=== PATIENT | female | born 1980 | race Caucasian/White ===

== ENCOUNTER → 2018-01-17 13:16 | Outpatient (CLI) | payer BC, SELFPAY ==
[2018-01-17 14:51] LABS: T4 (Thyroxine) 8.1 ug/dl (4.7-13.3); Thyroid Stimulating Hormone 0.04 uIU/ml (0.358-3.740); Triiodothryronine (T3) Uptake 37 % (31-39)
== END ==
PROVIDERS: Visit Provider Internal Medicine Adolescent Medicine
DX: E03.9 Hypothyroidism, unspecified (principal)
CPT/HCPCS: 36415; 84436; 84443; 84479

== ENCOUNTER → 2018-01-29 18:07 | Outpatient (REF) | payer BC, SELFPAY | LOC: LAB 18:07 | PROVIDERS: Visit Provider Nurse Practitioner Obstetrics & Gynecology | DX: R39.9 Unspecified symptoms and signs involving the genitourinary system (principal) | CPT/HCPCS: 87077; 87086 ==

== ENCOUNTER → 2018-04-10 16:03 | Outpatient (CLI) | payer BC, SELFPAY ==
[2018-04-10 18:52] LABS: Free Thyroxine Index 2.6 ug/dL (5.93-13.13); T4 (Thyroxine) 7.9 ug/dl (4.7-13.3); Thyroid Stimulating Hormone 0.26 uIU/ml (0.358-3.740); Triiodothryronine (T3) Uptake 33 % (31-39)
== END ==
PROVIDERS: Visit Provider Internal Medicine Adolescent Medicine
DX: E03.9 Hypothyroidism, unspecified (principal)
CPT/HCPCS: 36415; 84436; 84443; 84479

== ENCOUNTER → 2018-06-28 17:11 | Outpatient (CLI) | payer BC, SELFPAY ==
[2018-06-28 18:24] LABS: Free Thyroxine Index 2.6 ug/dL (5.93-13.13); T4 (Thyroxine) 8.7 ug/dl (4.7-13.3); Thyroid Stimulating Hormone 0.92 uIU/ml (0.358-3.740); Triiodothryronine (T3) Uptake 30 % (31-39)
[2018-06-30 18:41] LABS: EBV Ab VCA, IgM <36.0 U/mL (0.0-35.9)
== END ==
PROVIDERS: Visit Provider Nurse Practitioner Family
DX: J02.9 Acute pharyngitis, unspecified (principal); E03.9 Hypothyroidism, unspecified
CPT/HCPCS: 36415; 84436; 84443; 84479; 86665

== ENCOUNTER → 2018-07-27 07:08 | Outpatient (CLI) | payer BC, SELFPAY ==
[2018-07-27 07:39] LABS: Basophils % 0.8 % (0.1-2.0); Eosinophils # 0.1 K/mm3 (0.0-0.4); Eosinophils % 2.4 % (0.1-12.0); Hemoglobin 12.6 g/dL (12.2-16.2); Lymphocytes # 1.6 K/mm3 (0.7-4.5); Lymphocytes % 26.7 K/mm3 (10-50); Mean Corpuscular HGB Conc 32.4 g/dL (31.8-35.4); Mean Corpuscular Hemoglobin 29.2 pg (27.0-31.2); Monocytes # 0.2 K/mm3 (0.1-1.0); Monocytes % 3.8 % (1.7-9.3); Neutrophils # 3.9 K/mm3 (1.8-7.8); Neutrophils % 66.3 % (37.0-80.0); Platelet Count 225 K/mm3 (142-424); Red Blood Count 4.33 M/mm3 (4.20-5.40); Red Cell Distribution Width 13.2 % (11.5-17.5); White Blood Count 5.8 K/mm3 (4.8-10.8)
[2018-07-27 10:55] LABS: Alanine Aminotransferase 20 U/L (12-78); Albumin/Globulin Ratio 1.1 (1.1-1.8); Alkaline Phosphatase 48 U/L (46-116); Aspartate Amino Transferase 13 U/L (15-37); Bilirubin,Total 0.4 mg/dL (0.2-1.0); Blood Urea Nitrogen 8 mg/dL (7-18); Calcium 8.9 mg/dL (8.5-10.1); Carbon Dioxide 31 mmol/L (21.0-32.0); Chloride 105 mmol/L (98-107); Chol/HDL Ratio 2.4 (1-3.5); Cholesterol 213 mg/dL (140-200); Creatinine,Serum 0.65 mg/dL (0.55-1.02); Estimated Glomerular Filt Rate 103 ml/min (>60); GFR (African American) 124 ML/MIN (>60); Globulin 3.5 gm/dl (1.3-3.2); Glucose 83 mg/dL (74-106); HDL Cholesterol 89 mg/dL (29-89); LDL Cholesterol 116 mg/dL (0-130); Sodium 142 mmol/L (136-145); Thyroid Stimulating Hormone 1.68 uIU/ml (0.358-3.740); Total Protein,Serum 7.5 gm/dL (6.4-8.2); Triglycerides 39 mg/dL (30-200); VLDL Cholesterol 8 mg/dL (0-40)
[2018-07-30 05:17] LABS: Vitamin D 25 Hydroxy 20.4 ng/mL (30.0-100.0)
[2018-07-30 05:25] LABS: Vitamin B12 379 pg/mL (232-1245)
== END ==
PROVIDERS: PCP Internal Medicine Adolescent Medicine; Visit Provider Nurse Practitioner Family
DX: Z00.00 Encounter for general adult medical examination without abnormal findings (principal); R53.83 Other fatigue; E03.9 Hypothyroidism, unspecified
CPT/HCPCS: 36415; 80053; 80061; 82607; 82652; 84443; 85025

== ENCOUNTER → 2018-11-08 14:25 | Outpatient (CLI) | payer BC, SELFPAY ==
[2018-11-08 15:50] LABS: Basophils # 0.1 K/mm3 (0-0.2); Eosinophils # 0.1 K/mm3 (0.0-0.4); Eosinophils % 2.2 % (0.1-12.0); Hematocrit 37.4 % (37.0-47.0); Hemoglobin 12.1 g/dL (12.2-16.2); Lymphocytes # 1.5 K/mm3 (0.7-4.5); Lymphocytes % 23.1 % (10-50); Mean Corpuscular HGB Conc 32.3 g/dL (31.8-35.4); Mean Corpuscular Hemoglobin 29.3 pg (27.0-31.2); Mean Corpuscular Volume 90.8 fl (81-99); Mean Platelet Volume 7.3 fl (7.4-10.4); Monocytes # 0.2 K/mm3 (0.1-1.0); Monocytes % 3.7 % (1.7-9.3); Neutrophils # 4.4 K/mm3 (1.8-7.8); Neutrophils % 70.1 % (37.0-80.0); Platelet Count 236 K/mm3 (142-424); Red Blood Count 4.12 M/mm3 (4.20-5.40); Red Cell Distribution Width 13.1 % (11.5-17.5); White Blood Count 6.3 K/mm3 (4.8-10.8)
[2018-11-08 16:00] LABS: Alanine Aminotransferase 20 U/L (12-78); Albumin Level 3.7 gm/dL (3.4-5.0); Albumin/Globulin Ratio 1.1 (1.1-1.8); Alkaline Phosphatase 49 U/L (46-116); Anion Gap 12.8 mEq/L (5-15); Aspartate Amino Transferase 17 U/L (15-37); Bilirubin,Total 0.2 mg/dL (0.2-1.0); Blood Urea Nitrogen 12 mg/dL (7-18); Calcium 8.3 mg/dL (8.5-10.1); Carbon Dioxide 28 mmol/L (21.0-32.0); Chloride 105 mmol/L (98-107); Creatinine,Serum 0.85 mg/dL (0.55-1.02); Estimated Glomerular Filt Rate 75 ml/min (>60); GFR (African American) 91 ML/MIN (>60); Globulin 3.3 gm/dl (1.3-3.2); Glucose 82 mg/dL (74-106); Potassium 3.8 mmoL/L (3.5-5.1); Sodium 142 mmol/L (136-145); Thyroid Stimulating Hormone 0.35 uIU/ml (0.358-3.740)
[2018-11-10 10:57] LABS: Vitamin B12 1264 pg/mL (232-1245); Vitamin D 25 Hydroxy 64.8 ng/mL (30.0-100.0)
== END ==
PROVIDERS: Visit Provider Nurse Practitioner Family
DX: Z00.00 Encounter for general adult medical examination without abnormal findings (principal); E03.9 Hypothyroidism, unspecified; E53.8 Deficiency of other specified B group vitamins; E55.9 Vitamin D deficiency, unspecified
CPT/HCPCS: 36415; 80053; 82607; 82652; 84443; 85025

== ENCOUNTER → 2019-01-28 16:07 | Outpatient (CLI) | payer BC, SELFPAY ==
[2019-01-28 17:19] LABS: Alanine Aminotransferase 20 U/L (12-78); Albumin Level 3.8 gm/dL (3.4-5.0); Albumin/Globulin Ratio 1.1 (1.1-1.8); Alkaline Phosphatase 46 U/L (46-116); Anion Gap 12.9 mEq/L (5-15); Aspartate Amino Transferase 18 U/L (15-37); Bilirubin,Total 0.3 mg/dL (0.2-1.0); Blood Urea Nitrogen 14 mg/dL (7-18); Calcium 8.5 mg/dL (8.5-10.1); Carbon Dioxide 28 mmol/L (21.0-32.0); Chloride 102 mmol/L (98-107); Chol/HDL Ratio 2.8 (1-3.5); Cholesterol 197 mg/dL (140-200); Creatinine,Serum 0.67 mg/dL (0.55-1.02); Estimated Glomerular Filt Rate 99 ml/min (>60); GFR (African American) 120 ML/MIN (>60); Globulin 3.5 gm/dl (1.3-3.2); Glucose 85 mg/dL (74-106); HDL Cholesterol 71 mg/dL (29-89); LDL Cholesterol 105 mg/dL (0-130); Potassium 3.9 mmoL/L (3.5-5.1); Sodium 139 mmol/L (136-145); Thyroid Stimulating Hormone 1.99 uIU/ml (0.358-3.740); Total Protein,Serum 7.3 gm/dL (6.4-8.2); Triglycerides 104 mg/dL (30-200); VLDL Cholesterol 21 mg/dL (0-40)
== END ==
PROVIDERS: Visit Provider Internal Medicine Adolescent Medicine
DX: E78.5 Hyperlipidemia, unspecified (principal); E03.9 Hypothyroidism, unspecified
CPT/HCPCS: 36415; 80053; 80061; 84443

== ENCOUNTER → 2019-05-23 09:13 | Outpatient (CLI) | payer BC, SELFPAY ==
[2019-05-23 13:03] LABS: Alanine Aminotransferase 20 U/L (12-78); Albumin Level 3.9 gm/dL (3.4-5.0); Albumin/Globulin Ratio 1.1 (1.1-1.8); Alkaline Phosphatase 52 U/L (46-116); Anion Gap 14.2 mEq/L (5-15); Aspartate Amino Transferase 16 U/L (15-37); Bilirubin,Total 0.5 mg/dL (0.2-1.0); Blood Urea Nitrogen 12 mg/dL (7-18); Carbon Dioxide 27 mmol/L (21.0-32.0); Chloride 103 mmol/L (98-107); Cholesterol 211 mg/dL (140-200); Creatinine,Serum 0.68 mg/dL (0.55-1.02); Estimated Glomerular Filt Rate 97 ml/min (>60); GFR (African American) 118 ML/MIN (>60); Globulin 3.4 gm/dl (1.3-3.2); Glucose 80 mg/dL (74-106); HDL Cholesterol 71 mg/dL (29-89); LDL Cholesterol 130 mg/dL (0-130); Potassium 4.2 mmoL/L (3.5-5.1); Sodium 140 mmol/L (136-145); Thyroid Stimulating Hormone 2.71 uIU/ml (0.358-3.740); Total Protein,Serum 7.3 gm/dL (6.4-8.2); Triglycerides 48 mg/dL (30-200); VLDL Cholesterol 10 mg/dL (0-40)
== END ==
PROVIDERS: Visit Provider Nurse Practitioner Family
DX: Z00.00 Encounter for general adult medical examination without abnormal findings (principal); E78.5 Hyperlipidemia, unspecified; E03.9 Hypothyroidism, unspecified
CPT/HCPCS: 36415; 80053; 80061; 84443

== ENCOUNTER → 2019-10-21 17:58 | Outpatient (CLI) | payer BC, SELFPAY ==
[2019-10-21 21:00] LABS: Free Thyroxine Index 2.7 ug/dL (5.93-13.13); Thyroid Stimulating Hormone 6.54 uIU/ml (0.358-3.740); Triiodothryronine (T3) Uptake 34 % (31-39)
== END ==
PROVIDERS: Visit Provider Internal Medicine Adolescent Medicine
DX: E03.9 Hypothyroidism, unspecified (principal)
CPT/HCPCS: 36415; 84436; 84443; 84479

== ENCOUNTER → 2020-01-15 07:03 | Outpatient (CLI) | payer BC, SELFPAY ==
[2020-01-15 08:41] LABS: Chloride 102 mmol/L (98-107); Potassium 4.1 mmoL/L (3.5-5.1); Sodium 139 mmol/L (136-145)
[2020-01-15 08:43] LABS: Alanine Aminotransferase 12 U/L (12-78); Aspartate Amino Transferase 23 U/L (14-36); Blood Urea Nitrogen 10 mg/dl (7-17); Estimated Glomerular Filt Rate 112 ml/min (>60); GFR (African American) 135 ML/MIN (>60)
[2020-01-15 08:44] LABS: Albumin Level 4.5 g/dl (3.5-5.0); Albumin/Globulin Ratio 1.6 (1.1-1.8); Alkaline Phosphatase 36 U/L (38-126); Anion Gap 11.1 mEq/L (5-15); Bilirubin,Total 0.4 mg/dl (0.2-1.3); Calcium 9.6 mg/dl (8.4-10.2); Carbon Dioxide 30 mmol/L (22.0-30.0); Chol/HDL Ratio 3.1 (1-3.5); Cholesterol 206 mg/dl (140-200); Globulin 2.9 g/dL (1.3-3.2); Glucose 87 mg/dl (74-100); HDL Cholesterol 66 mg/dl (40-60); Total Protein,Serum 7.4 g/dl (6.3-8.2); Triglycerides 66 mg/dl (30-150); VLDL Cholesterol 13 mg/dL (0-40)
[2020-01-15 08:56] LABS: Direct LDL Cholesterol 105.62 mg/dL (100-129)
[2020-01-15 09:01] LABS: Triiodothryronine (T3) Uptake 33 % (23.5-40.5)
[2020-01-15 09:02] LABS: Free Thyroxine Index 2.6 ug/dL (5.93-13.13); T4 (Thyroxine) 7.9 ug/dl (5.53-11.0)
== END ==
PROVIDERS: Visit Provider Nurse Practitioner Family
DX: E78.5 Hyperlipidemia, unspecified (principal); E03.9 Hypothyroidism, unspecified; R53.83 Other fatigue
CPT/HCPCS: 36415; 80053; 80061; 84436; 84443; 84479

== ENCOUNTER → 2020-05-19 12:48 | Outpatient (CLI) | payer BC, SELFPAY ==
[2020-05-19 13:59] LABS: 25-OH Vitamin D, Total 54.2 ng/mL (30-100); Free Thyroxine Index 2.4 ug/dL (5.93-13.13); T4 (Thyroxine) 7.7 ug/dl (5.53-11.0); Triiodothryronine (T3) Uptake 31 % (23.5-40.5)
[2020-05-19 14:12] LABS: Thyroid Stimulating Hormone 3.63 uIU/mL (0.465-4.68)
[2020-05-20 11:58] LABS: Vitamin B12 948 pg/mL (232-1245)
== END ==
PROVIDERS: Visit Provider Nurse Practitioner Family
DX: E03.9 Hypothyroidism, unspecified (principal); E53.8 Deficiency of other specified B group vitamins; E55.9 Vitamin D deficiency, unspecified
CPT/HCPCS: 36415; 82306; 82607; 84436; 84443; 84479

== ENCOUNTER → 2020-10-06 08:50 | Outpatient (CLI) | payer BC, SELFPAY ==
[2020-10-06 11:48] LABS: Alanine Aminotransferase 12 U/L (12-78); Albumin Level 4.5 g/dl (3.5-5.0); Albumin/Globulin Ratio 1.4 (1.1-1.8); Alkaline Phosphatase 49 U/L (38-126); Anion Gap 11.3 mEq/L (5-15); Aspartate Amino Transferase 26 U/L (14-36); Bilirubin,Total 0.6 mg/dl (0.2-1.3); Blood Urea Nitrogen 10 mg/dl (7-17); Calcium 9.3 mg/dl (8.4-10.2); Carbon Dioxide 29 mmol/L (22.0-30.0); Chloride 103 mmol/L (98-107); Estimated Glomerular Filt Rate 93 ml/min (>60); GFR (African American) 113 ML/MIN (>60); Globulin 3.2 g/dL (1.3-3.2); Glucose 86 mg/dl (74-100); Potassium 4.3 mmoL/L (3.5-5.1); Sodium 139 mmol/L (136-145); Total Protein,Serum 7.7 g/dl (6.3-8.2)
[2020-10-06 12:20] LABS: Thyroid Stimulating Hormone 3.99 uIU/mL (0.465-4.68)
[2020-10-06 12:39] LABS: Vitamin B12 738 pg/mL (239-931)
== END ==
PROVIDERS: Visit Provider Nurse Practitioner Family
DX: E03.9 Hypothyroidism, unspecified (principal); E53.8 Deficiency of other specified B group vitamins; E55.9 Vitamin D deficiency, unspecified
CPT/HCPCS: 36415; 80053; 82306; 82607; 84443

== ENCOUNTER 2020-11-22 13:40 | Emergency (ER) | payer BC, SELFPAY ==
[2020-11-22 15:10] VITALS: PULSE 76; RESP 18; TEMP 36.3; O2SAT 99; BMI 23.6
--- NOTE | 2020-11-22 15:42 | HMH.EDUTC ---
[facility] [place] Clinical Impression: Close exposure to COVID-19 virus Disposition: Home, Self-Care Condition on Discharge: Good Instructions: DI for COVID-19 (Suspected or Confirmed ), Coronavirus Disease 2019, Preventing the Spread of Coronavirus Discharge Instructions Additional Instructions: *Monitor Temp, Over the counter Motrin or Tylenol as directed/as needed Tylenol every 4 hours and Motrin every 6 hours (as long as your family doctor has told you that you can take it) for fever or pain. and straight to ER if unable to lower temp less than 101.0 after medication given Follow up IMMEDIATELY for new or worsening symptoms or no Noticeable improvement over the next 48-72 hours. 911 for difficulty breathing or swallowing You were tested for today for COVID19 your test result should be back in the next 24-48 hours, you may call to the [facility] to see if your test results are back in the next 48 hours [phone] [facility] hours are 9am-9pm You was given a handout with instructions for Self Quarantine and Self isolation for while you wait on test results and what to do if they are positive If you are positive the Health Dept will be contacting you also Referrals: Lamont Morris MD [Primary Care Provider] - As needed Forms: Work/School Release Time of Disposition: 15:43 Medical Decision Making - Maximo Inquiry Pt receiving controlled substance: No Maximo was queried for this patient: No Vital Signs: 11/22/20 15:10 Temperature 97.4 F L Temperature Source Oral Pulse Rate [Right Brachial] 76 Respiratory Rate 18 02 Sat by Pulse Oximetry 99 Oxygen Delivery Method Room Air Orders (Tests/Meds): ORDERS Category Date Time Status Covid-19 Nasal PCR ([facility]) Routine Lab 11/22/20 15:12 Received [facility] [place] HPI - General Stated complaint: covid test Time Seen by Provider: 11/22/20 15:42 Mode of Arrival: Ambulatory Source of Information: Patient Limitations: No Limitations Description of Symptoms (Recalled from Triage Doc. by RN): COVID TEST D/T EXPOSURE. C/O FATIGUE HEENT Symptoms (Recalled from RN notes): No Resp Symptoms (Recalled from RN notes): No Skin Symptoms (Recalled from RN notes): No MS Symptoms (Recalled from RN notes): No Functional Status (Recalled from RN notes): WNL - History of Present Illness Provider Complaint: Patient states that her recently tested positive for COVID States that she has been feeling achy and fatigue for the last few days but no other symptom so she wanted to get tested - Related Data Home Medications Medication Instructions Recorded Confirmed cetirizine 10 mg capsule 10 mg PO ONCE 01/26/18 11/19/20 buspirone 5 mg tablet 5 mg PO BID 05/22/19 11/19/20 flu vacc [id number] 6mos up(PF) ml IM 09/15/20 11/19/20 levothyroxine 100 mcg tablet 100 mcg PO tab 09/15/20 11/19/20 clonazepam 0.5 mg tablet 0.5 mg PO tab 11/19/20 11/19/20 escitalopram oxalate 20 mg tablet 20 mg PO tab 11/19/20 11/19/20 Allergies Allergy/AdvReac Type Severity Reaction Status Date / Time bupropion [From WELLBUTRIN] Allergy Mild SEVERE Verified 11/19/20 09:34 ANXIETY, NAUSEA AND PAIN Penicillins [PENICILLINS] Allergy Mild I-RASH Verified 11/19/20 09:34 - Worker's Comp Is this a Worker's Comp case?: No [facility] History - Hepatitis A Screen Drug use history?: No High risk sexual behaviors?: No History of sexually transmitted infection?: No Currently employed?: No Childcare worker?: No Do you have indoor plumbing?: Yes Do you have electricity?: Yes Attestation statement:: This patient has been screened for Hepatitis A risk factors. I have reviewed the patient's past medical history: Yes Medical History: Reports:: Anxiety, Depression Other Medical History: Reports: Hypothyroidism Other Surgeries: Yes: No Previous Surgery Amputation: No Fractures: No Comment: CYSTOSCOPY WITH URETHRAL DILATION - Social History Smoking Status: Never smoker Alcohol Intake: never Alcohol I
[2020-11-22 15:46] VITALS: BP 00/00; PULSE 76; RESP 18; TEMP 36.3; O2SAT 99
== END 2020-11-22 15:57 | disposition home or self-care (01) ==
PROVIDERS: Emergency Provider Nurse Practitioner; PCP Internal Medicine Adolescent Medicine
DX: Z20.822 Contact with and (suspected) exposure to COVID-19 (principal); F41.8 Other specified anxiety disorders; Z79.899 Other long term (current) drug therapy
CPT/HCPCS: 99202; G0463; U0003

== ENCOUNTER → 2021-01-27 07:11 | Outpatient (CLI) | payer BC, SELFPAY ==
[2021-01-27 08:21] LABS: Chloride 105 mmol/L (98-107); Potassium 4.5 mmoL/L (3.5-5.1); Sodium 139 mmol/L (136-145)
[2021-01-27 08:24] LABS: Alanine Aminotransferase 19 U/L (12-78); Albumin Level 4.7 g/dl (3.5-5.0); Albumin/Globulin Ratio 1.3 (1.1-1.8); Alkaline Phosphatase 41 U/L (38-126); Anion Gap 11.5 mEq/L (5-15); Aspartate Amino Transferase 31 U/L (14-36); Bilirubin,Total 0.4 mg/dl (0.2-1.3); Blood Urea Nitrogen 13 mg/dl (7-17); Calcium 9.5 mg/dl (8.4-10.2); Carbon Dioxide 27 mmol/L (22.0-30.0); Chol/HDL Ratio 3.4 (1-3.5); Cholesterol 226 mg/dl (140-200); Estimated Glomerular Filt Rate 93 ml/min (>60); GFR (African American) 113 ML/MIN (>60); Globulin 3.6 g/dL (1.3-3.2); Glucose 86 mg/dl (74-100); HDL Cholesterol 66 mg/dl (40-60); Total Protein,Serum 8.3 g/dl (6.3-8.2); Triglycerides 102 mg/dl (30-150); VLDL Cholesterol 20 mg/dL (0-40)
[2021-01-27 08:36] LABS: Direct LDL Cholesterol 131.15 mg/dL (100-129)
[2021-01-27 08:42] LABS: 25-OH Vitamin D, Total 51.7 ng/mL (30-100)
[2021-01-27 08:55] LABS: Thyroid Stimulating Hormone 8.83 uIU/mL (0.465-4.68)
== END ==
PROVIDERS: Visit Provider Nurse Practitioner Family
DX: E03.9 Hypothyroidism, unspecified (principal); E78.5 Hyperlipidemia, unspecified; E55.9 Vitamin D deficiency, unspecified
CPT/HCPCS: 36415; 80053; 80061; 82306; 84443

== ENCOUNTER → 2021-04-22 17:01 | Outpatient (CLI) | payer BC, SELFPAY ==
[2021-04-22 17:13] LABS: Basophils # 0.1 K/mm3 (0-0.2); Basophils % 1.2 % (0.1-2.0); Eosinophils # 0.1 K/mm3 (0.0-0.4); Eosinophils % 1.8 % (0.1-12.0); Hematocrit 38.3 % (37.0-47.0); Hemoglobin 12.5 g/dL (12.2-16.2); Lymphocytes # 1.9 K/mm3 (0.7-4.5); Lymphocytes % 28.6 % (10-50); Mean Corpuscular HGB Conc 32.6 g/dL (31.8-35.4); Mean Corpuscular Hemoglobin 28.8 pg (27.0-31.2); Mean Corpuscular Volume 88.6 fl (81-99); Mean Platelet Volume 7.4 fl (7.4-10.4); Monocytes # 0.3 K/mm3 (0.1-1.0); Monocytes % 3.8 % (1.7-9.3); Neutrophils # 4.2 K/mm3 (1.8-7.8); Neutrophils % 64.7 % (37.0-80.0); Platelet Count 259 K/mm3 (142-424); Red Blood Count 4.32 M/mm3 (4.20-5.40); Red Cell Distribution Width 12.9 % (11.5-17.5); White Blood Count 6.5 K/mm3 (4.8-10.8)
[2021-04-22 17:28] LABS: Chloride 102 mmol/L (98-107); Sodium 138 mmol/L (136-145)
[2021-04-22 17:30] LABS: Blood Urea Nitrogen 10 mg/dl (7-17); Estimated Glomerular Filt Rate 93 ml/min (>60); GFR (African American) 113 ML/MIN (>60)
[2021-04-22 17:31] LABS: Alanine Aminotransferase 13 U/L (12-78); Albumin Level 4.6 g/dl (3.5-5.0); Albumin/Globulin Ratio 1.4 (1.1-1.8); Alkaline Phosphatase 44 U/L (38-126); Aspartate Amino Transferase 24 U/L (14-36); Bilirubin,Total 0.2 mg/dl (0.2-1.3); Calcium 9.2 mg/dl (8.4-10.2); Carbon Dioxide 27 mmol/L (22.0-30.0); Globulin 3.2 g/dL (1.3-3.2); Glucose 109 mg/dl (74-100); Total Protein,Serum 7.8 g/dl (6.3-8.2)
[2021-04-22 18:08] LABS: Thyroid Stimulating Hormone 2.58 uIU/mL (0.465-4.68)
[2021-04-22 20:26] LABS: Vitamin B12 745 pg/mL (239-931)
[2021-04-23 16:07] LABS: Hemoglobin A1C 5.1 % (4.0-6.0)
== END ==
PROVIDERS: Visit Provider Nurse Practitioner Family
DX: Z00.00 Encounter for general adult medical examination without abnormal findings (principal); E78.5 Hyperlipidemia, unspecified; E03.9 Hypothyroidism, unspecified; E53.8 Deficiency of other specified B group vitamins; E55.9 Vitamin D deficiency, unspecified; R73.9 Hyperglycemia, unspecified
CPT/HCPCS: 36415; 80053; 82306; 82607; 83036; 84443; 85025

== ENCOUNTER → 2021-07-29 16:12 | Outpatient (CLI) | payer BC, SELFPAY ==
--- NOTE | 2021-07-29 16:13 | MM_ITS ---
PROCEDURE: MM DIG SCREENING MAMM BI W/CAD Digital Breast Tomosynthesis Included CLINICAL INDICATION: SCREENING COMPARISON: No exams were available for comparison TECHNIQUE: Standard CC and MLO images and 3D Tomosynthesis was obtained. R2 CAD reviewed. FINDINGS: There are scattered areas of fibroglandular density. No suspicious appearing mass, malignant-appearing microcalcification, architectural distortion, or skin thickening. IMPRESSION: Negative BI-RAD Category: 1 Negative FOLLOW-UP: 1 YR 1 Year Follow-up (A letter has been sent to the patient regarding results of the study.) Dictated by: Sebastian Connors MD 08/16/2021 11:20 Sebastian Connors MD in [place] 08/16/2021 11:20
== END ==
PROVIDERS: PCP Internal Medicine Adolescent Medicine; Visit Provider Nurse Practitioner Family
DX: Z12.31 Encounter for screening mammogram for malignant neoplasm of breast (principal)
CPT/HCPCS: 77063; 77067

== ENCOUNTER → 2021-10-14 11:37 | Outpatient (CLI) | payer BC, SELFPAY ==
[2021-10-14 12:13] LABS: Basophils # 0.1 K/mm3 (0-0.2); Basophils % 2.3 % (0.1-2.0); Eosinophils # 0.1 K/mm3 (0.0-0.4); Eosinophils % 2.2 % (0.1-12.0); Hematocrit 38.4 % (37.0-47.0); Hemoglobin 12.8 g/dL (12.2-16.2); Lymphocytes # 1.6 K/mm3 (0.7-4.5); Lymphocytes % 27.2 % (10-50); Mean Corpuscular HGB Conc 33.4 g/dL (31.8-35.4); Mean Corpuscular Hemoglobin 29.2 pg (27.0-31.2); Mean Corpuscular Volume 87.4 fl (81-99); Mean Platelet Volume 7.6 fl (7.4-10.4); Monocytes # 0.2 K/mm3 (0.1-1.0); Neutrophils # 3.9 K/mm3 (1.8-7.8); Neutrophils % 64.3 % (37.0-80.0); Platelet Count 287 K/mm3 (142-424); Red Blood Count 4.39 M/mm3 (4.20-5.40); Red Cell Distribution Width 13.4 % (11.5-17.5)
[2021-10-14 13:35] LABS: Alanine Aminotransferase 6 U/L (12-78); Albumin Level 4.4 g/dl (3.5-5.0); Albumin/Globulin Ratio 1.5 (1.1-1.8); Alkaline Phosphatase 38 U/L (38-126); Anion Gap 9.2 mEq/L (5-15); Aspartate Amino Transferase 26 U/L (14-36); Bilirubin,Total 0.2 mg/dl (0.2-1.3); Blood Urea Nitrogen 8 mg/dl (7-17); Calcium 9.4 mg/dl (8.4-10.2); Carbon Dioxide 29 mmol/L (22.0-30.0); Chloride 104 mmol/L (98-107); Estimated Glomerular Filt Rate 111 ml/min (>60); GFR (African American) 134 ML/MIN (>60); Glucose 81 mg/dl (74-100); Potassium 4.2 mmoL/L (3.5-5.1); Sodium 138 mmol/L (136-145); Total Protein,Serum 7.4 g/dl (6.3-8.2)
[2021-10-14 13:52] LABS: Free T4 (Free Thyroxine) 1.21 ng/dl (0.78-2.19)
[2021-10-14 14:04] LABS: Thyroid Stimulating Hormone 0.09 uIU/mL (0.465-4.68)
== END ==
PROVIDERS: Visit Provider Nurse Practitioner Family
DX: E03.9 Hypothyroidism, unspecified (principal); R19.5 Other fecal abnormalities
CPT/HCPCS: 36415; 80053; 84439; 84443; 85025

== ENCOUNTER → 2021-10-16 09:40 | Outpatient (CLI) | payer BC, SELFPAY ==
[2021-10-16 09:43] LABS: Adenovirus F 40/41, stool Not Detected (NotDetected); Astrovirus Not Detected (NotDetected); Campylobacter Not Detected (NotDetected); Clostridium Difficile A/B, PCR Not Detected (NotDetected); Cryptosporidium Not Detected (NotDetected); Cyclospora Cayetanesis Not Detected (NotDetected); Entamoeba histolytica Not Detected (NotDetected); Enteroaggregative E coli Not Detected (NotDetected); Enteropathogenic E coli Not Detected (NotDetected); Enterotoxigenic E coli Not Detected (NotDetected); Giardia lamblia Not Detected (NotDetected); Norovirus Not Detected (NotDetected); Plesimonas Shigalloides, PCR Not Detected (NotDetected); Rotavirus A Not Detected (NotDetected); Salmonella, PCR Not Detected (NotDetected); Sapovirus Not Detected (NotDetected); Shiga-like toxin E coli Not Detected (NotDetected); Shigella Enterovasive E coli Not Detected (NotDetected); Vibrio Cholerae Not Detected (NotDetected); Vibrio, PCR Not Detected (NotDetected); Yersinia Entercolitica, PCR Not Detected (NotDetected)
== END ==
PROVIDERS: Visit Provider Nurse Practitioner Family
DX: R19.5 Other fecal abnormalities (principal); K62.89 Other specified diseases of anus and rectum
CPT/HCPCS: 87506

== ENCOUNTER → 2022-09-23 07:46 | Outpatient (CLI) | payer BC, SELFPAY ==
--- NOTE | 2022-09-23 07:52 | MM_ITS ---
PROCEDURE INFORMATION: Exam: MG Bilateral Screening 3D Mammography Exam date and time: 09/23/2022 7:54 AM Age: 42 years old Clinical indication: Screening examination. For paternal great breast cancer. History of left benign excisional biopsy. TECHNIQUE: Imaging protocol: Bilateral Screening tomosynthesis and 2D mammography including computer-aided detection (CAD) when performed. COMPARISON: MG MM DIG SCREENING MAMM BI W/CAD 07/29/2021 4:11 PM FINDINGS: MAMMOGRAPHY: Breast composition: There are scattered areas of fibroglandular density. Mass: None. Architectural distortion: None. Calcifications: No suspicious calcifications. Asymmetric density: None. Skin thickening: None. Axillary adenopathy: None. IMPRESSION: No mammographic evidence of malignancy. Annual screening is recommended unless otherwise clinically indicated. ASSESSMENT: BI-RADS Category 1: Negative
== END ==
PROVIDERS: PCP Internal Medicine Adolescent Medicine; Visit Provider Nurse Practitioner Family
DX: Z12.31 Encounter for screening mammogram for malignant neoplasm of breast (principal)
CPT/HCPCS: 77063; 77067

== ENCOUNTER → 2023-05-10 12:09 | Outpatient (CLI) | payer BC, SELFPAY ==
--- NOTE | 2023-05-10 12:17 | XR_ITS ---
FINAL REPORT CLINICAL HISTORY: INJURY, pain in middle of foot on top, swelling FINDINGS: RIGHT FOOT: Three views of the right foot were obtained. There is no acute fracture or dislocation. A mild hallux valgus deformity is present. There is mild 1st metatarsophalangeal joint degenerative change. There is no soft tissue abnormality. IMPRESSION: Mild hallux valgus deformity with mild 1st MTP degenerative change. Reviewed, Interpreted and Dictated by Víctor Webb III, MD Transcribed by Margaux Car Authenticated and [facility]
== END ==
PROVIDERS: PCP Internal Medicine Adolescent Medicine; Visit Provider Nurse Practitioner Family
DX: M79.671 Pain in right foot (principal); G89.11 Acute pain due to trauma
CPT/HCPCS: 73630

== ENCOUNTER 2023-07-07 15:07 | Emergency (ER) | payer BC, SELFPAY ==
[2023-07-07 15:08] VITALS: BP 130/86; PULSE 105; RESP 18; TEMP 36.8; O2SAT 99; BMI 26.1
[2023-07-07 15:30] VITALS: BP 129/89; PULSE 108; RESP 20; O2SAT 98
[2023-07-07 15:30] LABS: Microscopic, Urine URINE MICROSCOPIC (MICROSCOPIC)
--- NOTE | 2023-07-07 15:31 | US_ITS ---
FINAL REPORT CLINICAL HISTORY: RUQ pain, postprandial FINDINGS: RIGHT UPPER QUADRANT ULTRASOUND Sonographic images of the right upper quadrant were obtained. The pancreas is partially obscured. There is fatty infiltration of the liver. The gallbladder is contracted with a small amount of sludge. The common duct is normal. Limited images of the right kidney are normal. IMPRESSION: Fatty liver. Gallbladder sludge. Reviewed, Interpreted and Dictated by Juan J Flynn MD Transcribed by Pauly Nick Authenticated and [facility]
[2023-07-07 15:38] LABS: Basophils % 0.4 % (0.1-2.0); Eosinophils # 0.2 K/mm3 (0.0-0.4); Hematocrit 38.3 % (37.0-47.0); Hemoglobin 12.5 g/dL (12.2-16.2); Lymphocytes # 2.5 K/mm3 (0.7-4.5); Lymphocytes % 30.2 % (10-50); Mean Corpuscular HGB Conc 32.7 g/dL (31.8-35.4); Mean Corpuscular Hemoglobin 28.3 pg (27.0-31.2); Mean Corpuscular Volume 86.5 fl (81-99); Mean Platelet Volume 7.6 fl (7.4-10.4); Monocytes # 0.4 K/mm3 (0.1-1.0); Monocytes % 4.5 % (1.7-9.3); Neutrophils # 5.3 K/mm3 (1.8-7.8); Neutrophils % 62.8 % (37.0-80.0); Platelet Count 280 K/mm3 (142-424); Red Blood Count 4.43 M/mm3 (4.20-5.40); Red Cell Distribution Width 14.2 % (11.5-17.5); White Blood Count 8.4 K/mm3 (4.8-10.8)
[2023-07-07 15:43] LABS: Appearance,Urine CLEAR (Clear); Bilirubin,Urine Negative (Negative); Blood, Urine TRACE-I (Negative); Color,Urine YELLOW (Yellow); Glucose,Urine (UA) Negative (Negative); Ketones,Urine Negative (Negative); Leukocyte Esterase,Urine Negative (Negative); Nitrate,Urine Negative (Negative); Protein,Urine Negative (Negative); Specific Gravity, Urine <= 1.005 (1.005-1.030); Urobilinogen,Urine 0.2 EU/dl (0.2)
--- NOTE | 2023-07-07 15:44 | PC.NURSE ---
rad notified of u/s order
--- NOTE | 2023-07-07 15:48 | PC.NURSE ---
PT TO US
[2023-07-07 15:54] LABS: Alanine Aminotransferase 25 U/L (12-78); Albumin Level 4.8 g/dl (3.5-5.0); Albumin/Globulin Ratio 1.3 (1.1-1.8); Alkaline Phosphatase 59 U/L (38-126); Anion Gap 15.6 mEq/L (5-15); Aspartate Amino Transferase 31 U/L (14-36); Blood Urea Nitrogen 10 mg/dl (7-17); Calcium 9.2 mg/dl (8.4-10.2); Carbon Dioxide 27 mmol/L (22.0-30.0); Chloride 105 mmol/L (98-107); Creatinine Clearance Estimated 113 mL/min (50-200); Estimated Glomerular Filt Rate 79 ml/min (>60); GFR (African American) 95 ML/MIN (>60); Globulin 3.7 g/dL (1.3-3.2); Glucose 97 mg/dl (74-100); Lipase 74 U/L (23-300); Potassium 3.6 mmoL/L (3.5-5.1); RBC,Urine Occasional #/hpf (0-3); Sodium 144 mmol/L (136-145); Squamous Epithelial Cell,Urine Occasional #/hpf (0-5); Total Protein,Serum 8.5 g/dl (6.3-8.2)
[2023-07-07 15:55] LABS: Bilirubin,Total < 0.1 mg/dl (0.2-1.3)
--- NOTE | 2023-07-07 16:30 | HMH.EDGENADL ---
Discharge Plan Disposition Patient Disposition: Home, Self-Care Condition: Good Prescriptions Prescriptions: New ondansetron 4 mg tablet,disintegrating 4 mg PO Q8H PRN (Reason: nausea and vomiting) 4 Days Qty: 12 0RF naproxen 500 mg tablet 500 mg PO BID PRN (Reason: pain) Qty: 20 0RF polyethylene glycol 3350 [Miralax] 17 gram/dose powder 8.5 g PO DAILY PRN (Reason: constipation) 14 Days Qty: 119 0RF No Action clonazepam 0.5 mg tablet 0.5 mg PO Patient Comments: TAKE 1 TABLET BY DAILY NEEDED FOR PANIC FOR 30 DAYS escitalopram oxalate 20 mg tablet 10 mg PO DAILY buspirone 5 mg tablet 5 mg PO BID PRN levothyroxine 112 mcg capsule 112 mcg PO DAILY levocetirizine [Xyzal] 5 mg tablet 5 mg PO DAILY atorvastatin 20 mg tablet 20 mg PO DAILY Referrals Follow up/Referrals: Lamont Morris MD [Primary Care Provider] - See instructions Pravin Arce MD [Staff Physician] - See instructions Activity Restrictions/Add. Instructions Additional Instructions/Restrictions: You were evaluated in the emergency department today. At this time, your ultrasound of your gallbladder shows sludge, which I feel is likely causing your symptoms. Please pickling solution maker your prescriptions at home and take them as needed for symptoms. You may also take Tylenol in addition to these medications. I am prescribing MiraLAX to you, as constipation and gas buildup may also be contributing to your symptoms. Please call Dr. Arce's office to arrange follow-up with him early next week. He is a general surgeon who can discuss your gallbladder with you. I also recommend following up with your primary care provider. I recommend eating a bland diet, such as the BRAT diet (bananas, rice, applesauce, toast), and avoiding fatty/greasy foods. Eat small amounts at a time. Make sure that you are staying hydrated. Return to the emergency department for new or worsening symptoms, such as increasing pain, intractable vomiting, or fever. Clinical Impressions Clinical Impression: Abdominal pain, acute, right upper quadrant, Biliary sludge determined by ultrasound Instructions Patient Instructions: DI for Acute Abdominal Pain, DI for Biliary Colic Discharge ED Provider: Ankita Vergara General Adult HPI General Chief complaint: Abdominal Pain Stated complaint: right side abd pain Time Seen by Provider: 07/07/23 15:24 Mode of Arrival: Ambulatory Source of Information: Patient Limitations: No Limitations Description of Symptoms (Recalled from ER Triage Doc. by RN): PT C/O 2-3 WEEKS OF ONGOING RIGHT SIDED PAIN, WORSE ABOUT 1 HOUR AFTER EATING. History of Present Illness HPI narrative: This patient is a 43-year-old female with a history of hypothyroidism presenting to the emergency department for evaluation with concern for right upper quadrant abdominal pain. She states that it radiates up to her right shoulder. It gets worse in the evenings and worse with eating. It has been off and on for about 2 to 3 weeks now. She states that she was seen by her OB, who was concerned that it could be her gallbladder. She denies any fevers, chills, vomiting, change in bowel movements, or other concerns. She states that she has had poor appetite. She describes the pain as a pressure, as if she has gas up in her upper abdomen. She also notes that she usually has constipation, however she has been having much looser stools than usual. Related Data Home Medications Medication Instructions Recorded Confirmed clonazepam 0.5 mg tablet 0.5 mg PO 11/19/20 07/06/23 buspirone 5 mg tablet 5 mg PO BID PRN 07/05/22 07/06/23 atorvastatin 20 mg tablet 20 mg PO DAILY 07/06/23 07/06/23 escitalopram oxalate 20 mg tablet 10 mg PO DAILY 07/06/23 07/06/23 levocetirizine 5 mg tablet (Xyzal) 5 mg PO DAILY 07/06/23 07/06/23 levothyroxine 112 mcg capsule 112 mcg PO DAILY 07/06/23 07/06/23 Previous Rx's Medication Instructions Recorded n
--- NOTE | 2023-07-07 17:00 | PC.NURSE ---
DR ORTEGA AT BEDSIDE TO UPDATE PT AND FAMILY
--- NOTE | 2023-07-07 17:27 | PC.NURSE ---
rounded on pt at this time, family at BS, call button in reach, pt states no needs at this.
[2023-07-07 17:30] VITALS: BP 120/68; PULSE 67; RESP 20; O2SAT 97
--- NOTE | 2023-07-07 17:35 | PC.NURSE ---
ROUNDED ON PT, TOLERATED PO INTAKE
[2023-07-07 18:10] VITALS: BP 107/53; PULSE 68; RESP 17; TEMP 36.7; O2SAT 97
== END 2023-07-07 18:10 | disposition home or self-care (01) ==
PROVIDERS: Emergency Provider Emergency Medicine; PCP Internal Medicine Adolescent Medicine
DX: K83.8 Other specified diseases of biliary tract (principal); R10.11 Right upper quadrant pain; E03.9 Hypothyroidism, unspecified
CPT/HCPCS: 76705; 80053; 81001; 83690; 85025; 96361; 96374; 96375; 99284; J2405

== ENCOUNTER → 2023-07-18 07:22 | Outpatient (CLI) | payer BC, SELFPAY ==
[2023-07-18 07:37] LABS: Urine Pregnancy, HCG Qual. Negative (Negative)
== END ==
PROVIDERS: PCP Nurse Practitioner Family; Visit Provider Surgery
DX: Z01.812 Encounter for preprocedural laboratory examination (principal); K83.8 Other specified diseases of biliary tract
CPT/HCPCS: 81025

== ENCOUNTER 2023-07-21 08:29 | Day surgery (SDC) | payer BC, SELFPAY ==
[2023-07-18 16:48] VITALS: BMI 26.6
[2023-07-21] VITALS (10 sets, daily range): BP systolic 103–152; BP diastolic 60–81; PULSE 59–89; RESP 16–18; TEMP 36.1–36.8; O2SAT 95–100
--- NOTE | 2023-07-21 09:08 | EXP.ANES.CKL ---
[facility] Disclaimer: The information contained in this section may have been updated after the patient was seen, as this information can be updated by other users. Medical History Family history of melanoma Hypothyroid Normal cystoscopy Panic attacks Surgical History Hx of cystoscopy Family History Other Family history of diabetes mellitus Family history of hyperlipidemia Family history of melanoma Social History Smoking Status: Never smoker alcohol intake: never substance use type: denies use current occupational status: other Travel in the last 8 weeks: None household members: spouse housing: house [facility] Anesthesia Checklist Patient Identification Patient Identification: Arm Band and Verbal (Name & ) Structural Data Admitted From: Home Planned Operative Procedure/s: Lap. cholecystectomy Consent for Planned Operative Procedure(s) Verified: Yes NPO Status Verified Time NPO: 00:00 Chart Verification Results Verified: HCG Additional verifications Anesthesia Reactions: No Hx Blood Transfusions: No Blood Transfusion Reaction: No Airway Assessment Mallampati Score:: Class II C-Spine Mobility Assessed: Yes TMJ Mobility Assessed: Yes Dentition: Good Dentition Neurological Assessment Level of Consciousness: Awake Hx Seizures: No Numbness or tingling in extremities: No Anesthesia Plan Anesthesia Risk discussed: Yes Anesthesia Plan: Verified ASA Class: II Anesthesia Type: General
--- NOTE | 2023-07-21 10:10 | EXP.OP.NOTE ---
Date of procedure: 07/21/23 Pre-op Diagnosis:: Biliary sludge Right upper quadrant pain Post-op Diagnosis:: Chronic cholecystitis Procedure performed:: Laparoscopic cholecystectomy Surgeon:: Pravin Arce MD WATERWORKS CHIEF ENGINEER:: Daniel Pedro Anesthesia: GETA Estimated blood loss (mL): 15 Operative findings:: Pericholecystic fat stranding with colonic/gastric/small bowel adhesions Operative note:: After informed consent was obtained, the patient was taken to the operating room and placed in the supine position. General anesthesia was induced and the abdomen was prepped and draped in a sterile fashion. After infiltration with local anesthetic an infraumbilical incision was made. A Veress needle was placed in position. The abdomen was insufflated. A 5 mm optical trocar was placed in position. Under direct visualization, a 12 mm trocar was placed in the subxiphoid position and 2 additional 5 mm trocars were placed in the right upper quadrant. The gallbladder was elevated up and over the liver margin. The tissue around the cystic duct was carefully dissected. 3 clips were placed proximally and the duct was transected with harmonic anya. Harmonic anya were then utilized to dissect the gallbladder away from the liver margin with careful attention to the control of the cystic artery. The gallbladder was placed in a retrieval bag and removed through the subxiphoid trocar site. The right upper quadrant was thoroughly irrigated. No active bleeding or bile leak was noted. Fascia at the subxiphoid trocar site was reapproximated utilizing the NeoClose device. The remaining trocars were removed. All wounds were irrigated and skin was closed with 4-0 Monocryl in an interrupted/mattress fashion to facilitate hemostasis. The patient's anesthetic agents were reversed and extubation was completed prior to transfer to recovery in stable condition. Condition: stable Disposition: PACU Specimens:: Gallbladder and contents Complications:: No immediate
--- NOTE | 2023-07-21 10:23 | EXP.ANES.I ---
[facility] Anesthesia Record Part I Anesthesia Record I Intake, IV Amount: 1,000 Hydration: Adequate Estimated blood loss (mL): 10 Urine output (mL): 0 Blood Products used (#): none Blood Pressure: 116/65 SaO2: 95 Pulse Rate: 89 Airway Patency: Patent Respiratory Rate: 16 Temperature: 97 F Patient is:: Drowsy and Stable Stable to PACU at:: 10:20
--- NOTE | 2023-07-21 11:00 | EXP.ANES.II ---
[facility] Anesthesia Record Part II Anesthesia Record Part II Discharge Time: 10:50 Destination: Surgical Day Care (OP Surgery) PACU nurse assessment reviewed?: Yes Patient Condition:: Good Anesthesia Complications:: None Swallowing reflex intact?: Yes Airway Patency: Patent Cyanosis?: No Blood Pressure: 152/72 SaO2: 97 Respiratory Rate: 16 Pulse Rate: 76 Temperature: 97.9 F Mental Status: Alert & Oriented Pain level:: 3 Nausea and/or vomitting:: None Intake, IV Amount: 0 Hydration: Adequate
== END 2023-07-21 11:21 | disposition home or self-care (01) ==
PROVIDERS: PCP Internal Medicine Adolescent Medicine; Visit Provider Surgery
PROC: 0FT44ZZ Resection of Gallbladder, Percutaneous Endoscopic Approach (ICD-10-PCS; CPT 47562; principal; 2023-07-21 10:00)
DX: K81.2 Acute cholecystitis with chronic cholecystitis (principal)
CPT/HCPCS: 47562; 96374; J2405

== ENCOUNTER → 2023-09-25 17:01 | Outpatient (CLI) | payer BC, SELFPAY ==
--- NOTE | 2023-09-25 17:03 | MM_ITS ---
PROCEDURE INFORMATION: Exam: MG Bilateral Screening 3D Mammography Exam date and time: 09/25/2023 4:52 PM Age: 43 years old Clinical indication: Screening examination. A paternal great aunt had breast cancer. TECHNIQUE: Imaging protocol: Bilateral Screening tomosynthesis and 2D mammography including computer-aided detection (CAD) when performed. COMPARISON: 1. MG MM DIG SCREENING MAMM BI W/CAD 09/23/2022 7:54 AM 2. MG MM DIG SCREENING MAMM BI W/CAD 07/29/2021 4:11 PM FINDINGS: MAMMOGRAPHY: Breast composition: There are scattered areas of fibroglandular density. Mass: None. Architectural distortion: None. Calcifications: No suspicious calcifications. Asymmetric density: None. Skin thickening: None. Axillary adenopathy: None. IMPRESSION: No mammographic evidence of malignancy. Annual screening is recommended unless otherwise clinically indicated. ASSESSMENT: BI-RADS Category 1: Negative
== END ==
PROVIDERS: PCP Nurse Practitioner Family; Visit Provider Nurse Practitioner Family
DX: Z12.31 Encounter for screening mammogram for malignant neoplasm of breast (principal)
CPT/HCPCS: 77063; 77067

== ENCOUNTER 2023-12-29 13:26 | Emergency (ER) | payer BC, SELFPAY ==
[2023-12-29] VITALS (10 sets, daily range): BP systolic 108–144; BP diastolic 64–84; PULSE 67–111; RESP 18; TEMP 36.9; O2SAT 98–100; BMI 25.8
--- NOTE | 2023-12-29 13:46 | CT_ITS ---
FINAL REPORT TECHNIQUE: Thin section axial CT with IV contrast supplemented with multiplanar reconstruction under CT angiogram protocol. This study was performed with techniques to keep radiation doses as low as reasonably achievable (ALARA). Individualized dose reduction techniques using automated exposure control or adjustment of mA and/or kV according to the patient''s size were employed. NASCET criteria was utilized during interpretation. CLINICAL HISTORY: stroke alert R arm and face sensory change FINDINGS: Aortic arch: Arch shows no significant narrowing. Great vessel origins are widely patent. Right carotid: No significant stenosis is seen of the cervical common or internal carotid artery. Left carotid: No significant stenosis is seen of the cervical common or internal carotid artery. Vertebral: The vertebral arteries are codominant. No significant stenosis is present. IMPRESSION: No evidence of significant stenosis. Reviewed, Interpreted and Dictated by Víctor Webb III, MD Transcribed by Pauly Nick Authenticated and [facility]
--- NOTE | 2023-12-29 13:46 | CT_ITS ---
FINAL REPORT CLINICAL HISTORY: stroke alert, right side numbness and weakness COMPARISON: None FINDINGS: Axial images of the head were obtained without contrast. Coronal reformatted images were also obtained.This study was performed with techniques to keep radiation doses as low as reasonably achievable (ALARA). Individualized dose reduction techniques using automated exposure control or adjustment of mA and/or kV according to the patient's size were employed. There is no evidence of intracranial hemorrhage or mass. The ventricular size is within normal limits. There is no evidence of shift of the midline structures. No abnormal extra axial fluid collection is identified. No skull abnormality is seen on the bone window images. IMPRESSION: No acute intracranial abnormality. Reviewed, Interpreted and Dictated by Víctor Webb III, MD Transcribed by Florencia Young Authenticated and [facility]
--- NOTE | 2023-12-29 13:46 | CT_ITS ---
FINAL REPORT TECHNIQUE: Multiple axial CT angiography images were performed from the foramen magnum to the vertex before and during IV contrast administration. This study was performed with techniques to keep radiation doses as low as reasonably achievable (ALARA). Individualized dose reduction techniques using automated exposure control or adjustment of mA and/or kV according to the patient's size were employed. CLINICAL HISTORY: stroke alert R arm and face sensory change FINDINGS: CTA HEAD: The major intracranial arterial system is patent without hemodynamically significant stenosis or major vessel occlusion.No aneurysm is identified. IMPRESSION: No evidence of vascular injury, aneurysm, hemodynamically significant stenosis or major vessel occlusion of the intracranial arterial system. Reviewed, Interpreted and Dictated by Víctor Webb III, MD Transcribed by Pauly Nick Authenticated and [facility]
--- NOTE | 2023-12-29 13:47 | PC.NURSE ---
Stroke alert called per
[2023-12-29 14:02] LABS: Basophils % 0.5 % (0.1-2.0); Eosinophils # 0.1 K/mm3 (0.0-0.4); Eosinophils % 1.3 % (0.1-12.0); Hematocrit 40.9 % (37.0-47.0); Hemoglobin 13.6 g/dL (12.2-16.2); Lymphocytes # 1.9 K/mm3 (0.7-4.5); Lymphocytes % 24.8 % (10-50); Mean Corpuscular HGB Conc 33.2 g/dL (31.8-35.4); Mean Corpuscular Hemoglobin 29.8 pg (27.0-31.2); Mean Corpuscular Volume 89.6 fl (81-99); Mean Platelet Volume 7.8 fl (7.4-10.4); Monocytes # 0.2 K/mm3 (0.1-1.0); Monocytes % 2.7 % (1.7-9.3); Neutrophils # 5.4 K/mm3 (1.8-7.8); Neutrophils % 70.6 % (37.0-80.0); Platelet Count 266 K/mm3 (142-424); Red Blood Count 4.57 M/mm3 (4.20-5.40); Red Cell Distribution Width 13.8 % (11.5-17.5); White Blood Count 7.7 K/mm3 (4.8-10.8)
[2023-12-29] MEDS: IOPAMIDOL-370 (76%);100ML BOTTLE 100 ML IV (14:02)
[2023-12-29] MEDS: 0.9 % SODIUM CHLORIDE 50 ML VIAL IV (14:02)
--- NOTE | 2023-12-29 14:04 | ED_ITS ---
Discharge Plan Disposition Patient Disposition: Xfer Short-Term Hosp Condition: Good Chief Complaint: Neuro Symptoms/Deficit Prescriptions Prescriptions: No Action escitalopram oxalate 20 mg tablet 10 mg PO DAILY levothyroxine 112 mcg capsule 112 mcg PO DAILY levocetirizine [Xyzal] 5 mg tablet 5 mg PO DAILY atorvastatin 20 mg tablet 20 mg PO DAILY Lo Loestrin Fe 1 mg-10 mcg (24)/10 mcg (2) tablet 1 tab PO DAILY Qty: 28 11RF Rx Instructions: No substitutions. clonazepam [Klonopin] 0.5 mg Tablet 0.5 mg PO NEEDED PRN (Reason: Panic Attack(S)) hydrocodone-acetaminophen 5-325 mg tablet 1 tab PO Q6H PRN (Reason: post-op pain) Qty: 17 0RF Referrals Follow up/Referrals: Lamont Morris MD [Primary Care Provider] - See instructions Clinical Impressions Clinical Impression: Facial numbness, Numbness and tingling of right arm Discharge ED Provider: Nakita Brito General Adult HPI General Chief complaint: Neuro Symptoms/Deficit Stated complaint: facial spasms, numbness, heaviness in arm Time Seen by Provider: 12/29/23 13:45 Mode of Arrival: Ambulatory Source of Information: Patient Limitations: No Limitations Description of Symptoms (Recalled from ER Triage Doc. by RN): c/o tingling in face and numbness for one year, right hand heavy and numbness that started around 11am with some disoriented and loopy. Pt is scheduled for a MRI for the face numbness. NIHSS 0 History of Present Illness HPI narrative: 43-year-old female presents to the ER with concerns of right-sided facial tingling and right arm heaviness. Patient states she has been having facial spasms and occasional changes in the sensation of the right side of her face for almost a year and has an MRI in 6 days for this problem. Patient states at 11 AM she had sudden onset of facial spasm, facial numbness worse than normal, and right arm heaviness. She felt like she could not write with her right arm. Patient is right arm dominant. Patient also endorses having bad headaches over the last week. Patient states she got very scared but she has a history of anxiety and panic disorder so she took her Klonopin which did not help her symptoms. She presented to the ER for further evaluation. Patient denies any other deficits at this time. She denies any other associated symptoms. Related Data Home Medications Medication Instructions Recorded Confirmed atorvastatin 20 mg tablet 20 mg PO DAILY hld 07/06/23 07/26/23 escitalopram oxalate 20 mg tablet 10 mg PO DAILY Depression 07/06/23 07/26/23 levocetirizine 5 mg tablet (Xyzal) 5 mg PO DAILY ALLERGIES 07/06/23 07/26/23 levothyroxine 112 mcg capsule 112 mcg PO DAILY HYPOTHYROID 07/06/23 07/26/23 clonazepam 0.5 mg tablet (Klonopin) 0.5 mg PO NEEDED PRN Panic 07/21/23 07/26/23 Attack(S) Previous Rx's Medication Instructions Recorded hydrocodone 5 mg-acetaminophen 325 1 tab PO Q6H PRN post-op pain #17 07/21/23 mg tablet tabs Lo Loestrin Fe 1 mg-10 mcg (24)/10 1 tab PO DAILY #28 tabs 11/20/23 mcg (2) tablet (norethindrone-e.estradiol-iron) Allergies Allergy/AdvReac Type Severity Reaction Status Date / Time bupropion [From WELLBUTRIN] Allergy Mild SEVERE Verified 07/26/23 09:12 ANXIETY, NAUSEA AND PAIN Penicillins [PENICILLINS] Allergy Mild I-RASH Verified 07/26/23 09:12 [facility] Disclaimer: The information contained in this section may have been updated after the patient was seen, as this information can be updated by other users. Medical History (Updated 12/29/23 @ 15:32 by Nakita Brito MD) Family history of melanoma Hypothyroid Normal cystoscopy Panic attacks Surgical History (Updated 07/26/23 @ 09:13 by IVANNA Palafox) History of laparoscopic cholecystectomy Hx of cystoscopy Family History Other Family history of diabetes mellitus Family history of hyperlipidemia Family history of melanoma Social History Smoking Status: Former smoker alcohol intake: never substance use type: denies use current occupational status: other Travel in the last 8 weeks: None household members: spouse housing: house ROS Obtained: Yes All systems reviewed & no additional complaints except as documented Constitutional Constitutional: Denies chills, Denies fever(s), Reports headache(s) and Reports weakness Eyes Eyes: Denies change in vision ENT Ears, Nose, Mouth, and Throat: Denies dizziness, Reports headache(s), Denies nasal congestion and Denies sore throat Comments: Facial tingling, spasm Cardiovascular Cardiovascular: Denies chest pain, Denies dyspnea and Denies leg edema Respiratory Respiratory: Denies cough and Denies dyspnea Gastrointestinal Gastrointestingal: Denies constipation, diarrhea, nausea or vomiting Genitourinary Female Genitourinary: Denies dysuria Musculoskeletal Musculoskeletal: Denies arthralgias, Denies myalgias, Denies numbness and Reports tingling Integumentary/Breasts Skin/Breast: Denies change in pigmentation Neurologic Neurologic: Denies dizziness, Reports headache(s), Denies numbness, Reports tingling and Reports weakness Comments: Right arm heaviness and tingling Physical Exam General General appearance: alert and in no apparent distress Head Head exam: atraumatic and normocephalic Eye Eye exam: Present PERRL and EOMI ENT ENT exam: Present mucous membranes moist Neck Neck exam: Present normal inspection and full ROM; Absent tenderness Chest Chest inspection: Present symmetric chest wall rise Respiratory Respiratory exam: Present normal lung sounds bilaterally; Absent respiratory distress, wheezes or stridor Cardiovascular Cardiovascular exam: Present regular rate and normal rhythm Abdominal Exam Abdominal exam: Present soft; Absent distention or tenderness Extremities Exam Extremities exam: Present full ROM Neurological Exam Neurological exam: Present alert, oriented X3, CN II-XII intact, normal gait and motor sensory deficit (Slightly decreased sensation in the right upper extremity and right face, neuroexam otherwise negative including finger-nose and znce-so-desr. NIH 0) Psychiatric Psychiatric exam: Present normal affect and normal mood Skin Skin exam: Present warm and dry Medical Decision Making Maximo Inquiry Pt receiving controlled substance: No Vital Signs: 12/29/23 13:27 12/29/23 13:56 12/29/23 14:14 Temperature 98.4 F Temperature Source Oral Pulse Rate 78 Pulse Rate [Left Radial] 111 H Respiratory Rate 18 Blood Pressure 110/64 120/76 Blood Pressure [Right Arm] 144/84 H Blood Pressure Mean [Right Arm] 104 Blood Pressure Source Manual Cuff/ Auscultation Blood Pressure Source [Right Arm] Automatic Cuff Blood Pressure Position [Right Arm] Sitting 02 Sat by Pulse Oximetry 99 100 Oxygen Delivery Method Room Air Room Air 12/29/23 14:30 12/29/23 15:00 Temperature Temperature Source Pulse Rate 67 74 Pulse Rate [Left Radial] Respiratory Rate Blood Pressure 117/67 114/73 Blood Pressure [Right Arm] Blood Pressure Mean [Right Arm] Blood Pressure Source Blood Pressure Source [Right Arm] Blood Pressure Position [Right Arm] 02 Sat by Pulse Oximetry 100 99 Oxygen Delivery Method Room Air Room Air Lab Data Lab Results 12/29/23 13:50: WBC 7.7, RBC 4.57, Hgb 13.6, Hct 40.9, MCV 89.6, MCH 29.8, MCHC 33.2, RDW 13.8, Plt Count 266, MPV 7.8, Neut % (Auto) 70.6, Lymph % (Auto) 24.8, [place] % (Auto) 2.7, Eos % (Auto) 1.3, Baso % (Auto) 0.5, Neut # (Auto) 5.4, Lymph # (Auto) 1.9, [place] # (Auto) 0.2, Eos # (Auto) 0.1, Baso # (Auto) 0.0, Sodium 141, Potassium 3.4 L, Chloride 105, Carbon Dioxide 31 H, Anion Gap 8.4, BUN 8, Creatinine 0.70, Estimated Creat Clear 127, Estimated GFR 92, Est GFR ( Amer) 111, Glucose 157 H, Calcium 9.4, Total Bilirubin 0.4, AST 33, ALT 22, Alkaline Phosphatase 60, Troponin I < 0.01, Total Protein 8.5 H, Albumin 5.0, Globulin 3.5 H, Albumin/Globulin Ratio 1.4 12/29/23 14:08: Urine Color Yellow, Urine Appearance Clear, Urine pH 6.5, Ur Specific [place] <= 1.005, Urine Protein Negative, Urine Glucose (UA) Negative, Urine Ketones Negative, Urine Blood Negative, Urine Nitrate Negative, Urine Bilirubin Negative, Urine Urobilinogen 0.2, Ur Leukocyte Esterase Negative, Urine RBC None, Urine WBC None, Ur Squamous Epith Cells 3-5, Urine Bacteria Trace 12/29/23 13:50 12/29/23 13:50 Orders (Tests/Meds): ED MEDICATIONS Generic Name Dose Route Start Last Admin Trade Name Freq PRN Reason Stop Dose Admin Sodium Chloride 10 ml 12/29/23 13:58 Sodium Chloride 0.9% 10ml Flush Syringe IV 01/28/24 13:57 NEEDED PRN Maintain IV Site Sodium Chloride 10 ml 12/29/23 14:00 Sodium Chloride 0.9% 10ml Syr (Rad Only) IV 01/28/24 13:59 NEEDED PRN Maintain IV Site Discontinued Medications Generic Name Dose Route Start Last Admin Trade Name Isabel PRN Reason Stop Dose Admin Iopamidol 100 ml 12/29/23 14:00 12/29/23 14:02 Iopamidol-370 (76%);100ml Bottle IV 12/29/23 14:01 100 ml ONCE ONE Administration Sodium Chloride 50 ml 12/29/23 14:00 12/29/23 14:02 0.9 % Sodium Chloride 50 Ml Vial IV 12/29/23 14:01 50 ml ONCE ONE Administration ORDERS Category Date Time Status CT angio head Stat Cat Scan 12/29/23 13:[address] angio neck Stat Cat Scan 12/29/23 13:[address] head/brain wo con Stat Cat Scan 12/29/23 13:46 Completed CBC w/Auto Diff [Complete Blood Count Auto Diff] Stat Lab 12/29/23 13:50 Completed CMP [Comprehensive Metabolic Panel] Stat Lab 12/29/23 13:50 Completed POC Glucose,Bedside Stat Lab 12/29/23 13:46 Ordered Trop I [Troponin I] Stat Lab 12/29/23 13:50 Completed Troponin I Q3H Lab 12/29/23 17:15 Ordered Troponin I Q3H Lab 12/29/23 20:15 Ordered Urinalysis and Microscopic Stat Lab 12/29/23 14:08 Completed ECG Request Stat Y 12/29/23 13:46 Ordered Medical Decision Narrative: In summary, this 43year old female presents to the emergency department today with right face and arm changes in sensation as well as a sensation of heavine ss. On initial evaluation patient is hemodynamically stable, GCS 15, decree sensation in the right upper extremity and right face without other localizing deficits on exam. Differential diagnosis includes but is not limited to ischemic stroke, intracranial bleed, trigeminal neuralgia, radiculopathy, electrolyte abnormality, ACS, atypical migraine. Based on these concerns, I made the patient a stroke alert at 1347. NIH 0. CT head, CT angiography of the head and neck, cardiac workup, basic labs were ordered. Overall I have lower suspicion for stroke but patient's acute change in sensory function was concerning. ECG personally interpreted demonstrates normal sinus rhythm, rate 73, normal in tervals, normal axis, no STEMI. Labs personally reviewed demonstrate no leukocytosis or anemia, CMP with trace hypokalemia, nonactionable at this time, slight hyperglycemia but patient has not been fasting, initial troponin undetectably low at less than 0.01, reassuring. UA negative for signs of infection. CT head personally interpreted does not demonstrate any acute intracranial bleed, mass, or midline shift. See radiology read for final interpretation. CTAs do not demonstrate any vascular occlusion or other vascular abnormality. See radiology reads for full interpretation. I discussed this case with the [facility] special events coordinator who recommended oral aspirin which has been administered. Patient was accepted to [facility] for transfer, admission, and additional stroke workup by Dr. Fermin. Critical Care Critical Care Time Critical Care Time: Yes Attestation: On 12/29/23, the high probability of a clinically significant, sudden or life threatening deterioration of the following system(s) required my full and direct attention, intervention and personal management. The time I documented below is in addition to time spent performing reported procedures but includes the following listed in this critical care notation. Total Time Total Critical Care Time: 35
[2023-12-29 14:07] LABS: Chloride 105 mmol/L (98-107); Sodium 141 mmol/L (136-145)
[2023-12-29 14:08] LABS: Potassium 3.4 mmoL/L (3.5-5.1)
[2023-12-29 14:10] LABS: Alanine Aminotransferase 22 U/L (12-78); Albumin/Globulin Ratio 1.4 (1.1-1.8); Alkaline Phosphatase 60 U/L (38-126); Anion Gap 8.4 mEq/L (5-15); Aspartate Amino Transferase 33 U/L (14-36); Bilirubin,Total 0.4 mg/dl (0.2-1.3); Blood Urea Nitrogen 8 mg/dl (7-17); Calcium 9.4 mg/dl (8.4-10.2); Carbon Dioxide 31 mmol/L (22.0-30.0); Creatinine Clearance Estimated 127 mL/min (50-200); Estimated Glomerular Filt Rate 92 ml/min (>60); GFR (African American) 111 ML/MIN (>60); Globulin 3.5 g/dL (1.3-3.2); Glucose 157 mg/dl (74-100); Total Protein,Serum 8.5 g/dl (6.3-8.2)
--- NOTE | 2023-12-29 14:11 | ECG_ITS ---
APPROVED REPORT Exam: Resting ECG HR:73 bpm ECG Measurements Heart Rate 73 AXES OR 147 P 82 QRSd 113 QRS 49 QT 395 T 71 QTc 420 Conclusion SINUS RHYTHM Normal ECG UNCONFIRMED REPORT Electronically signed by : Lamont Morris MD 12/30/2023 08:15:02
[2023-12-29 14:19] LABS: Microscopic, Urine URINE MICROSCOPIC (MICROSCOPIC)
[2023-12-29 14:23] LABS: Appearance,Urine CLEAR (Clear); Bilirubin,Urine Negative (Negative); Blood, Urine Negative (Negative); Color,Urine YELLOW (Yellow); Glucose,Urine (UA) Negative (Negative); Ketones,Urine Negative (Negative); Leukocyte Esterase,Urine Negative (Negative); Nitrate,Urine Negative (Negative); PH,Urine 6.5 (5.0-8.5); Protein,Urine Negative (Negative); Specific Gravity, Urine <= 1.005 (1.005-1.030); Urobilinogen,Urine 0.2 EU/dl (0.2)
[2023-12-29 14:42] LABS: Bacteria,Urine Trace /lpf
[2023-12-29 15:05] LABS: Troponin I < 0.01 ng/ml (0.00-0.034)
--- NOTE | 2023-12-29 15:16 | PC.NURSE ---
calling [facility] to speak for to speak with justin vital
[2023-12-29] MEDS: ASPIRIN 81MG CHEWABLE TABLET 324 MG PO (15:28)
--- NOTE | 2023-12-29 16:41 | PC.NURSE ---
Attempted to call report to [facility]. Leah states she will call back in about 10 minutes.
--- NOTE | 2023-12-29 17:17 | PC.NURSE ---
Called [facility] for transfer to [facility]
== END 2023-12-29 17:52 | disposition short-term general hospital (02) ==
PROVIDERS: Emergency Provider Emergency Medicine; PCP Internal Medicine Adolescent Medicine
DX: R20.2 Paresthesia of skin (principal); R20.0 Anesthesia of skin; M62.838 Other muscle spasm; E03.9 Hypothyroidism, unspecified; R29.818 Other symptoms and signs involving the nervous system
CPT/HCPCS: 70450; 70496; 70498; 80053; 81001; 84484; 85025; 93005; 99285; Q9967

== ENCOUNTER 2024-03-20 08:08 | Outpatient (POV) | payer BC, SELFPAY | END 2024-03-20 23:59 | disposition home or self-care (01) | LOC: SC 08:08 | PROVIDERS: Visit Provider Specialist/Technologist | DX: Z00.00 Encounter for general adult medical examination without abnormal findings (principal) ==

== ENCOUNTER 2024-05-01 15:21 | Emergency (ER) | payer BC, SELFPAY ==
[2024-05-01 15:30] VITALS: BP 121/73; PULSE 85; RESP 20; TEMP 36.8; O2SAT 100; BMI 24.3
--- NOTE | 2024-05-01 15:44 | ED_ITS ---
Discharge Plan Disposition Patient Disposition: Home, Self-Care Condition: Good Prescriptions Prescriptions: New phenazopyridine 200 mg Tablet 200 mg PO TID 2 Days Qty: 6 0RF cephalexin 500 mg capsule 500 mg PO QID 5 Days Qty: 20 0RF No Action escitalopram oxalate 20 mg tablet 10 mg PO DAILY oxcarbazepine 150 mg tablet 150 mg PO BID levothyroxine 112 mcg capsule 112 mcg PO DAILY atorvastatin 20 mg tablet 20 mg PO DAILY amitriptyline 10 mg tablet 20 mg PO DAILY Referrals Follow up/Referrals: Lamont Morris MD [Primary Care Provider] - See instructions Activity Restrictions/Add. Instructions Additional Instructions/Restrictions: Drink plenty of fluids. Take tylenol or ibuprofen for pain or fever. Take the medications as directed. Follow up with your regular doctor. GO TO THE ER FOR ANY WORSENING SYMPTOMS The pyridium will make your urine turn orange, this is an expected side effect. It will stain your clothes if it comes into contact with them. We will culture the urine. That will tell what bacteria is causing your infection and which antibiotics will treat it best. Sometimes the first antibio tic we prescribe turns out to not work against different bacteria. So, make sure you follow up within 3 days if you are not getting better. Clinical Impressions Clinical Impression: Cystitis Instructions Patient Instructions: Phenazopyridine, Cephalexin Discharge ED Provider: Eusebio Bennett [facility] General Stated complaint: poss UTI Mode of Arrival: Ambulatory Source of Information: Patient Limitations: No Limitations Time Seen by Provider: 05/01/24 15:44 Description of Symptoms (Recalled from Triage Doc. by RN): PATIENT C/O BLADDER PAIN/PRESSURE AND FEELING UNWELL X 1 WEEK HEENT Symptoms (Recalled from RN notes): No Resp Symptoms (Recalled from RN notes): No Skin Symptoms (Recalled from RN notes): No MS Symptoms (Recalled from RN notes): No Functional Status (Recalled from RN notes): WNL History of Present Illness Provider Complaint: She states that for the past 1 week she has had urinary frequency, dysuria, and low back discomfort. In the past she had similar symptoms and she was diagnosed with bladder spasms. Related Data Home Medications Medication Instructions Recorded Confirmed atorvastatin 20 mg tablet 20 mg PO DAILY hld 07/06/23 05/01/24 escitalopram oxalate 20 mg tablet 10 mg PO DAILY Depression 07/06/23 05/01/24 levothyroxine 112 mcg capsule 112 mcg PO DAILY HYPOTHYROID 07/06/23 05/01/24 amitriptyline 10 mg tablet 20 mg PO DAILY 02/15/24 05/01/24 oxcarbazepine 150 mg tablet 150 mg PO BID 03/21/24 05/01/24 Previous Rx's Medication Instructions Recorded cephalexin 500 mg capsule 500 mg PO QID 5 days #20 caps 05/01/24 phenazopyridine 200 mg tablet 200 mg PO TID 2 days #6 tabs 05/01/24 Allergies Allergy/AdvReac Type Severity Reaction Status Date / Time bupropion [From WELLBUTRIN] Allergy Mild SEVERE Verified 03/21/24 15:55 ANXIETY, NAUSEA AND PAIN Penicillins [PENICILLINS] Allergy Mild I-RASH Verified 03/21/24 15:55 Worker's Comp Is this a Worker's Comp case?: No [facility] Disclaimer: The information contained in this section may have been updated after the patient was seen, as this information can be updated by other users. Medical History (Updated 05/01/24 @ 16:22 by Eusebio Bennett APRN) Hearing Loss TMJ (dislocation of temporomandibular joint) Tinnitus Panic attacks Family history of melanoma Normal cystoscopy Hypothyroid Surgical History History of laparoscopic cholecystectomy Hx of cystoscopy Family History Other Family history of diabetes mellitus Family history of hyperlipidemia Family history of melanoma Social History Smoking Status: Former smoker alcohol intake: never substance use type: denies use current occupational status: other Travel in the last 8 weeks: None household members: spouse housing: house ROS Obtained: Yes All systems reviewed & no additional complaints except as documented Constitutional Constitutional: Reports system reviewed and no additional complaints, except as documented, Denies chills and Denies fever(s) Eyes Eyes: Denies eye discharge ENT Ears, Nose, Mouth, and Throat: Denies dysphagia, Denies sore throat and Denies throat swelling Cardiovascular Cardiovascular: Denies chest pain and Denies dyspnea Respiratory Respiratory: Denies chest congestion, Denies cough and Denies dyspnea Gastrointestinal Gastrointestingal: Denies abdominal pain, constipation, diarrhea, dysphagia, nausea or vomiting Genitourinary Female Genitourinary: Reports as per HPI, Reports dysuria, Reports urinary frequency, Denies urinary incontinence, Reports urinary hesitancy and Reports urinary urgency Musculoskeletal Musculoskeletal: Denies arthralgias and Reports back pain Integumentary/Breasts Skin/Breast: Denies rash Neurologic Neurologic: Denies paresthesias Allergic/Immunologic Allergic/Immunologic: Denies throat swelling Physical Exam General General appearance: alert and in no apparent distress Head Head exam: atraumatic and normocephalic Eye Eye exam: Present normal appearance, PERRL and EOMI ENT ENT exam: Present normal exam, mucous membranes moist, TM's normal bilaterally and normal external ear exam Neck Neck exam: Present normal inspection, full ROM and trachea midline; Absent tenderness, meningismus or lymphadenopathy Chest Chest inspection: Present normal inspection and symmetric chest wall rise; Absent tenderness Respiratory Respiratory exam: Present normal lung sounds bilaterally; Absent respiratory distress, wheezes or stridor Cardiovascular Cardiovascular exam: Present regular rate, normal rhythm and normal heart sounds Abdominal Exam Abdominal exam: Present soft and normal bowel sounds; Absent distention, tenderness, guarding, rebound, rigidity, incision, psoas sign, obturator sign, heel tap sign, Louise's sign, Rovsing's sign or tenderness at McBurney's Point Extremities Exam Extremities exam: Present normal inspection, full ROM and normal capillary refill; Absent tenderness, edema, joint swelling, calf tenderness or cyanosis Back Exam Back exam: Present normal inspection and full ROM; Absent tenderness, CVA tenderness (R) or CVA tenderness (L) Neurological Exam Neurological exam: Present alert, oriented X3 and normal gait Psychiatric Psychiatric exam: Present normal affect and normal mood Skin Skin exam: Present warm, dry, intact and normal color Lymphatic Lymphatic Findings: no adenopathy Medical Decision Making Medical Records Medical records reviewed: No I reviewed the patient's medical records. Maximo Inquiry Pt receiving controlled substance: No Vital Signs: 05/01/24 15:30 Temperature 98.2 F Temperature Source Oral Pulse Rate [Left Brachial] 85 Respiratory Rate 20 Blood Pressure [Left Arm] 121/73 Blood Pressure Mean [Left Arm] 89 Blood Pressure Source [Left Arm] Automatic Cuff Blood Pressure Position [Left Arm] Sitting 02 Sat by Pulse Oximetry 100 Oxygen Delivery Method Room Air Lab Data Lab results reviewed: Yes I reviewed the patient's lab results.
[2024-05-01 15:46] LABS: Apearance,Urine Clear (Clear); Bilirubin,Urine Negative (Negative); Blood, Urine Negative (Negative); Color,Urine Yellow (Yellow); Glucose,Urine (UA) Negative (Negative); Ketones,Urine Negative (Negative); Protein,Urine Negative (Negative); UTC Leukocyte Esterase,Urine Negative (Negative); UTC Nitrate,Urine Negative (Negative); Urobilinogen,Urine 0.2 EU/dl (0.2)
[2024-05-01 16:06] LABS: UTC Strep Screen (Rapid) Negative (Negative)
[2024-05-01 16:28] VITALS: BP 121/73; PULSE 85; RESP 20; TEMP 36.8; O2SAT 100
== END 2024-05-01 16:29 | disposition home or self-care (01) ==
PROVIDERS: Emergency Provider Nurse Practitioner Family; PCP Internal Medicine Adolescent Medicine
DX: N30.00 Acute cystitis without hematuria (principal); R30.0 Dysuria; M54.59 Other low back pain; R35.0 Frequency of micturition
CPT/HCPCS: 81003; 87086; 87880; 99204; 99212; G0463

== ENCOUNTER 2024-06-11 13:41 | Outpatient (POV) | payer BC, SELFPAY | END 2024-06-11 23:59 | disposition home or self-care (01) | LOC: SC 13:42 | PROVIDERS: PCP Internal Medicine Adolescent Medicine; Visit Provider Dermatology | DX: Z00.00 Encounter for general adult medical examination without abnormal findings (principal) ==

== ENCOUNTER 2024-10-30 07:42 | Outpatient (CLI) | payer BC, SELFPAY ==
--- NOTE | 2024-10-30 07:50 | MM_ITS ---
PROCEDURE INFORMATION: Exam: MG Bilateral Screening 3D Mammography Exam date and time: 10/30/2024 7:54 AM Age: 44 years old Clinical indication: Screening examination TECHNIQUE: Imaging protocol: Bilateral Screening tomosynthesis and 2D mammography including computer-aided detection (CAD) when performed. COMPARISON: 1. MG MM DIG SCREENING MAMM BI W/CAD 09/25/2023 4:52 PM 2. MG MM DIG SCREENING MAMM BI W/CAD 09/23/2022 7:54 AM FINDINGS: MAMMOGRAPHY: Breast composition: There are scattered areas of fibroglandular density. Mass: None. Architectural distortion: None. Calcifications: No suspicious calcifications. Asymmetric density: None. Skin thickening: None. Axillary adenopathy: None. IMPRESSION: No mammographic evidence of malignancy. Annual screening is recommended unless otherwise clinically indicated. ASSESSMENT: BI-RADS Category 1: Negative.
== END 2024-10-30 23:59 | disposition home or self-care (01) ==
LOC: RAD 07:43
PROVIDERS: PCP Nurse Practitioner Family; Visit Provider Nurse Practitioner Family
DX: Z12.31 Encounter for screening mammogram for malignant neoplasm of breast (principal)
CPT/HCPCS: 77063; 77067

== ENCOUNTER 2025-07-30 06:44 | Outpatient (CLI) | payer BC, SELFPAY ==
--- OUTSIDE RECORDS SUMMARY | 2025-07-16 09:00 | XMS_ITS | Encounter Summary ---
Author Organization [facility] Address [address] [place] [id number] Care Team Providers Care Infrastructure Manager Name Role Phone Lamont Morris MD Primary Care Provider [phone] Reason for Referral * MRI/CAT/PET Scan (Routine) - Authorized - Pending Scheduling Specialty Diagnoses / Procedures Referred By Selvin levine Referred To Contact Diagnoses Urge incontinence of urine Spasm Rectal spasm Urinary incontinence without sensory awareness Procedures MRI Thoracic Spine With & Without Contrast Brian English APRN [address] [place] [id number] Phone: tel: fax: [facility] [address] [place] [address] Phone: tel: fax: Referral ID Status Reason Start Date Expiration Date Visits Requested Visits Authorized [id number] Authorized - Pending Scheduling 07/16/2025 10/15/2026 1 1 * MRI/CAT/PET Scan (Routine) - Pending Review Specialty Diagnoses / Procedures Referred By Selvin levine Referred To Contact Diagnoses Urge incontinence of urine Spasm Rectal spasm Urinary incontinence without sensory awareness Procedures MRI Lumbar Spine Without Contrast Brian English APRN [address] [facility] [address] [place] [address] Phone: tel: fax: [facility] [address] [facility] [address] [place] [address] Phone: tel: fax: Referral ID Status Reason Start Date Expiration Date V isits Requested Visits Authorized Pending Review 07/16/2025 10/15/2026 1 1 * MRI/CAT/PET Scan (Routine) - Pending Review Specialty Diagnoses / Procedures Referred By Selvin levine Referred To Contact Diagnoses Urge incontinence of urine Spasm Rectal spasm Urinary incontinence without sensory awareness Procedures MRI Lumbar Spine With Contrast Brian English APRN [address] [facility] [address] [place] [id number] Phone: tel: fax: [facility] [address] [facility] [address] [place] [address] Phone: tel: fax: Referral ID Status Reason Start Date Expiration Date V isits Requested Visits Authorized Pending Review 07/16/2025 10/15/2026 1 1 * Consultation (Routine) - Pending Review Specialty Diagnoses / Procedures Referred By Selvin levine Referred To Contact Urology Diagnoses Urge incontinence of urine Procedures MI OFFICE/OUTPATIENT NEW MODERATE MDM 45 MINUTES Brian English APRN [address] [facility] [address] [place] [address] Phone: tel: fax: Graciela Saunders APRN [address] [place] [address] Phone: tel: fax: Referral ID Status Reason Start Date Expiration Date Visits Requested Visits Authorized [id number] Pending Review Specialty Services Required 07/16/2025 10/15/2026 1 1 Reason for Visit * Reason Comments Migraine Encounter Details Date Type Department Care Team (Late st Contact Info) Description 07/16/2025 9:00 AM EDT Office Visit [facility] [address] [facility] [address] [place] [address] Brian English APRN [address] [facility] [address] [place] [address] Migraine without aura and without status migrainosus, not intractable (Primary Dx); Trigeminal neuralgia; Urge incontinence of urine; Spasm; Rectal spasm; Urinary incontinence without sensory awareness Social History Tobacco Use Types Packs/Day Years Used Date Smoking Tobacco: Former Cigarettes 0.3 1.3 Q uit: 09/06/1996 Passive Smoke Exposure: Never Smokeless Tobacco: Never Tobacco Cessation:Counseling Given: No Alcohol Use Standard Drinks/Week Comments Yes 1 (1 standard drink = 0.6 oz pur e alcohol) socially AUDIT-C Answer Date Recorded Q1: How often do you have a drink containing alc ohol? 2-4 times a month 12/29/2023 Q2: How many drinks containi ng alcohol do you have on a typical day when you are drinking? 1 or 2 12/29/2023 Q3: How often do you have si x or more drinks on one occasion? Never 12/29/2023 Abuse Screen Answer Date Recorded Feels Unsafe at Home or Work/School yes 12/29/2023 Feels Threatened by Someone no 12/14 Does Anyone Try to Keep You From Having Contact with Others or Doing Things Outside Your Home? no 12/29/2023 Physical Signs of Abuse Present no 12/29/2023 Housing Stability Answer Date Recorded Current Living Arrangements home 12/14 Potentially Unsafe Housing Conditions Not on rose mary e 12/29/2023 Disabilities Answer Date Recorded Difficulty Concentrating, Remembering or Making Decisions no 12/29/2023 Difficulty Managing Errands Independently no 12/29/2023 Comments No Sex and Gender Information Value Date Recorded Sex Assigned at Female 01/08/2025 8:24 AM EST Legal Sex Female 12:01 PM EDT Gender Identity Not on file Sexual Orientation Not on file documented as of this encounter Last Filed Vital Signs Vital Sign Reading Time Taken Comments Blood Pressure 116/88 07/16/2025 8:51 AM EDT Pulse 84 07/16/2025 8:51 AM EDT Temperature - - Respiratory Rate - - Oxygen Saturation 99% 07/16/2025 8:51 AM EDT Inhaled Oxygen Concentration - - Weight 75.4 kg (166 lb 3.2 oz) 07/16/2025 8:51 A M EDT Height 172.7 cm (5' 7.99 ) 07/16/2025 8:51 AM ED T Body Mass Index 25.28 07/16/2025 8:51 AM EDT documented in this encounter Progress Notes * Brian English APRN - 07/16/2025 9:00 AM EDTAddended by: BRIAN ENGLISH on: 07/16/2025 05:21 PM Modules accepted: Orders * Brian English APRN - 07/16/2025 9:00 AM EDT Neuro Office Visit Encounter Date: 07/16/2025 Patient Name: Cande Nath : 1980 PCP: Lamont Morris MD Chief Complaint: Chief Complaint Patient presents with Migraine History of Present Illness: Cande Nath is a 45 y.o. female who is here today in Neurology for trigeminal neuralgia. Last visit with me on 01/15/2025, continued Emgality and oxcarbazepine. History of Present Illness She reports an increase in facial spasms and stiffness, as well as the onset of rectal spasms that disrupt her sleep. Additionally, she experiences bladder spasms, which she suspects may be related to menopause. Bladder spasms spasms are causing significant distress, necessitating the use of a pad and carryinga change of clothes. The bladder spasms occur primarily in the morning and can persist for several days if she does not urinate hourly. The facial spasms are random and seem to worsen with fatigue or stress. She describes the spasms assimilar to those experienced in 2017. She has used methocarbamol which she finds helpful for the spasms. She has been taking Emgality, which she finds beneficial, but notes that the effects seem to wear off before the next injection. She continues to take oxcarbazepine 300 mg twice daily, which she occasionally misses, resulting insharp shooting pains and a return of burning sensations. She has discussed her rectal spasms with her primary care physician and has tried Linzess without success. She is unsure if these symptoms are stress-related or indicative of an underlying issue. Her lab results have been normal. She underwent a bladder scope years ago, which did not reveal any abnormalities. She experiences constant fatigue and occasional numbness, weakness, and tingling. She also reports a sensation of pressure on her neck, polly to carrying a heavy sack. Despite sleeping for 10 hours, she still feels groggy. She is currently trying to wean off Lexapro to see if it alleviates her fatigue. She is considering whether her symptoms could be related to mold exposure at her workplace. Subjective Past Medical History: Past Medical History: Diagnosis Date Anxiety Arrhythmia Developmental delay 1999 Headache, tension-type Occasionally have HL (hearing loss) Possible with tmj testing in March Hyperlipidemia Hypothyroidism Migraine 2023 Pcp added qulilta maybe tn but did provide relief Palpitations 09/06/2016 Peripheral neuropathy Syncope 2004? Bp low and thyroid disease. Corrected with treatment. Trigeminal neuralgia 03/2022 Diagnosed in hospital Past Surgical History: Past Surgical History: Procedure Laterality Date WISDOM TOOTH EXTRACTION Family History: Family History Problem Relation Age of Onset Hyperlipidemia Mother Hypertension Mother Migraines Mother Melanoma Father No Known Problems Sister Social History: Social History Socioeconomic History Marital status: Tobacco Use Smoking status: Former Current packs/day: 0.00 Average packs/day: 0.3 packs/day for 1.3 years (0.3 ttl pk-yrs) Types: Cigarettes Quit date: 09/06/1996 Years since quittin.8 Passive exposure: Never Smokeless tobacco: Never Vaping Use Vaping status: Never Used Substance and Sexual Activity Alcohol use: Yes Alcohol/week: 1.0 standard drink of alcohol Types: 1 Glasses of wine per week Comment: socially Drug use: No Sexual activity: Yes Partners: Male control/protection: Vasectomy Medications: Current Outpatient Medications: Alpha-Lipoic Acid 600 MG capsule, Take by mouth., Disp: , Rfl: Cholecalciferol (D3) 50 MCG (1999 UT) tablet, Take by mouth Daily., Disp: , Rfl: clonazePAM (KlonoPIN) 0.5 MG tablet, Take 1 tablet by mouth 2 (Two) Times a Day As Needed., Disp: ,Rfl: escitalopram (LEXAPRO) 10 MG tablet, Take 1 tablet by mouth Every Night. Taking half tab, Disp: , Rfl: galcanezumab-gnlm (EMGALITY) 120 MG/ML auto-injector pen, Inject 1 mL under the skin into the appropriate area as directed Every 28 (Twenty-Eight) Days., Disp: 1 mL, Rfl: 11 levocetirizine (XYZAL) 5 MG tablet, Take 1 tablet by mouth Every Evening. Pt is taking 10 mg, Disp:, Rfl: levothyroxine (SYNTHROID, LEVOTHROID) 112 MCG tablet, Take 1 tablet by mouth Every Morning., Disp: , Rfl: linaclotide (Linzess) 72 MCG capsule capsule, , Disp: , Rfl: methocarbamol (ROBAXIN) 500 MG tablet, TAKE 1 TO 2 TABLETS BY MOUTH EVERY 8 HOURS NEEDED FOR MUSCLE SPASM /TENSION, Disp: , Rfl: OXcarbazepine (TRILEPTAL) 300 MG tablet, Take 1 tablet by mouth 2 (Two) Times a Day., Disp: 60 tablet, Rfl: 6 rimegepant sulfate ODT (Nurtec) 75 MG disintegrating tablet, Take 1 tablet by mouth Daily As Needed(migraines). Take 1 tablet at the onset of headache, Max of 75 mg/24 hours, Max of 18 tabs/30 days., Disp: 16 tablet, Rfl: 11 Allergies: Allergies Allergen Reactions Qulipta [Atogepant] GI Intolerance Bupropion Anxiety Penicillins Rash PHQ-9 Total Score: STEADI Fall Risk Assessment has not been completed. Objective Physical Exam: Neurological Exam Mental Status Awake, alert and oriented to person, place and time. Recent and remote memory are intact. Speech isnormal. Language is fluent with no aphasia. Attention and concentration are normal. Fund of knowledge is appropriate for level of education. Cranial Nerves CN II: Visual acuity is normal. CN III, IV, : Extraocular movements intact bilaterally. Pupils equal round and reactive to light bilaterally. CN V: Facial sensation is normal. CN VII: Full and symmetric facial movement. CN IX, X: Palate elevates symmetrically CN XI: Shoulder shrug strength is normal. CN XII: Tongue midline without atrophy or fasciculations. Motor Normal muscle bulk throughout. No fasciculations present. Normal muscle tone. Strength is 5/5 throughout all four extremities. Sensory Sensation is intact to light touch, pinprick, vibration and proprioception in all four extremities. Reflexes Right Left Brachioradialis 2+ 2+ Biceps 2+ 2+ Triceps 2+ 2+ Finger flex 2+ 2+ Hamstring 2+ 2+ Patellar 2+ 2+ Achilles 2+ 2+ Coordination Goqaoi-ly-ajzy, rapid alternating movements and mtnt-ue-sjeg normal bilaterally without dysmetria. Gait Normal casual, toe, heel and tandem gait. Vital Signs: Vitals: 07/16/25 0851 BP: 116/88 Pulse: 84 SpO2: 99% Weight: 75.4 kg (166 lb 3.2 oz) Height: 172.7 cm (67.99 ) Body mass index is 25.28 kg/m??. Results: Results Imaging - MRI of brain: 12/2023, Small pineal cyst and one white matter lesion. - MRI of cervical spine: 12/2023, Clear. Imaging: No Images in the past 120 days found.. Labs: No results found for: CMP , PROTEIN , ANTIMOGAB , [id number] , JCVRESULT , QUANTTBGOLD , CBCDIF , IGGALBSER Assessment / Plan Assessment/Plan: Diagnoses and all orders for this visit: 1. Migraine without aura and without status migrainosus, not intractable (Primary) Comments: Continue Emgality 2. Trigeminal neuralgia Comments: Continue oxcarbazepine 3. Urge incontinence of urine - Ambulatory Referral to Urology 4. Spasm - Heavy Metals Profile II, Urine - Urine, Clean Catch; Future Other orders - OXcarbazepine (TRILEPTAL) 300 MG tablet; Take 1 tablet by mouth 2 (Two) Times a Day. Dispense: 60tablet; Refill: 6 Assessment & Plan 1. Facial spasms. The facial spasms are random and seem to worsen with fatigue or stress. The patient is currently taking oxcarbazepine 300 mg twice a day. An increase in the dosage of oxcarbazepine was discussed as apotential option to help with the spasms. If the spasms worsen or new symptoms develop, a repeat MRI will be considered, followed by a lumbar puncture if necessary. 2. Rectal spasms. The patient reports experiencing rectal spasms that wake her up in the middle of the night. She hasstarted taking Linzess but is unsure if it is effective. If the spasms worsen or new symptoms develop, a repeat MRI will be considered, followed by a lumbar puncture if necessary. 3. Bladder spasms. The patient experiences bladder spasms that lead to urinary incontinence, especially in the morning. A referral to urology will be made for further evaluation. If the spasms worsen or new symptoms develop, a repeat MRI will be considered, followed by a lumbar puncture if necessary. 4. Fatigue. The patient reports constant fatigue despite sleeping for 10 hours. The possibility of multiple sclerosis (MS) was discussed, given her symptoms of fatigue and spasms. The only way to completely ruleout MS is with a lumbar puncture. If the spasms worsen or new symptoms develop, a repeat MRI will be considered, followed by a lumbar puncture if necessary. 5. Migraines. The patient is currently using Emgality for migraines and reports it has significantly reduced the frequency of her migraines. She is advised to continue with Emgality and consider taking Nurtec every other day during the week it wears off to manage any breakthrough migraines. 6. Medication management. The patient is currently taking oxcarbazepine 300 mg twice a day and methocarbamol as needed. She reports occasional missed doses of oxcarbazepine, which leads to sharp shooting pains and burning sensations. She is advised to maintain her current medication regimen and ensure consistent dosing of ox carbazepine. Follow-up The patient will follow up in 3 months. Patient Education: Reviewed medications, potential side effects and signs and symptoms to report. Discussed risk versus benefits of treatment plan with patient and/or family- including medications, labs and radiology that may be ordered. Addressed questions and concerns during visit. Patient and/or family verbalized un derstanding and agree with plan. Instructed to call the office with any questions and report to ER with any life-threatening symptoms. Follow Up: Return in about 3 months (around 10/15/2025). I spent 45 minutes caring for Cande on this date of service. This time includes time spent by me inthe following activities: preparing for the visit, performing a medically appropriate examination and/or evaluation, counseling and educating the patient/family/caregiver, documenting information in the medical record, and ordering test(s). During this visit the following were done: Labs Reviewed [] Labs Ordered [x] Radiology Reports Reviewed [] Radiology Ordered [] PCP Records Reviewed [] Referring Provider Records Reviewed [] ER Records Reviewed [] Hospital Records Reviewed [] History Obtained From Family [] Radiology Images Reviewed [] Other Reviewed [] Records Requested [] Patient or patient sales representative wire rope verbalized consent for the use of Ambient Listening during the visit with Brian English APRN for chart documentation. 07/16/2025 12:52 EDT Brian English APRN [facility] [address] [place] [phone] documented in this encounter Plan of Treatment Upcoming Encounters Date Type Department Care Team (Late st Contact Info) Description 10/15/2025 10:00 AM EST Office Visit [facility] [address] [address] Brian English APRN [address] [address] Scheduled Orders Name Type Priority Associated Diagnoses Orde r Schedule MRI Lumbar Spine With Contrast Imaging Routine Urge incontinence of urine Spasm Rectal spasm Urinary incontinence without sensory awareness Expected: 07/21/2025 (Approximate), Expires: 07/16/2026 MRI Lumbar Spine Without Contrast Imaging Routine Urge incontinence of urine Spasm Rectal spasm Urinary incontinence without sensory awareness Expected: 07/21/2025 (Approximate), Expires: 07/16/2026 MRI Thoracic Spine With & Without Contrast Imaging Routine Urge incontinence of urine Spasm Rectal spasm Urinary incontinence without sensory awareness Expected: 07/21/2025 (Approximate), Expires: 07/16/2026 Scheduled Referrals Name Type Priority Associated Diagnoses Orde r Schedule Ambulatory Referral to Urology Outpatient Referral Routine Urge incontinence of urine Ordered: 07/16/2025 documented as of this encounter Goals Goal Patient Goal Type Associated Problems Recent Progress Patient-Stated? Author Specialty Pharmacy General Goal General On track( 025 11:00 AM EDT) No Khushboo Del Castillo, PharmD Note: On Average, Reduce: Frequency of migraines by 50% Symptom severity by 90 % within 2 hours of taking acute therapy. Baseline Values/Notes on Enrollment Frequency: 3 migraines weekly Date of Reassessment Notes on Progress Toward Above Goals 12/10/24 dw Pt started on Qulipta 11/05 and noted improvement in her migraines, insurance will not cover Qulipta (and Qulipta caused severe constipation) this year - changing to Emgality. 05/29/25 dw Pt noted chronic daily headaches and before Emgality, and now only needing to use Emgality 1-2 times weekly. Nurtec effective abortive. .migrainego documented as of this encounter Results * Heavy Metals Profile II, Urine - Urine, Clean Catch (07/16/2025 10:19 AM EDT) Creatinine, Urine 0.32 0.30 - 3.00 g/L 07/24/2025 11:11 AM EDT [facility] Comment:Detection Limit = 0. 10 Arsenic Ur None Detected 0 - 9 ug/L 07/24/2025 11:11 AM EDT [facility] Comment:Detection Limit = 10 Lead, Urine None Detected 0 - 49 ug/L 07/24/2025 11:11 AM EDT [facility] Comment:Detection Limit = 1 Mercury, Urine None Detected 0 - 19 ug/L 07/24/2025 11:11 AM EDT [facility] Comment:Detection Limit = 1 Cadmium, Urine None Detected None detected ug/L 07/24/2025 11:11 AM EDT [facility] Comment:Detection Limit = 1. 0 Urine Urine specimen obtained by clean catch procedure / Unknown Collection / Unknown 07/16/2025 10:19 AM EDT 07/16/2025 10:19 AM EDT Narrative [facility] - 07/24/2025 11:11 AM EDT Test(s) [id number] (Total),U; [id number]-Cgve, Urine; 223361- Mercury, Urine; 885560-Dyzjoqz, Urine was developed and its performance characteristics determined by [employer]. It has not been cleared or approved by the Food and Drug Administration. Performed at: 01 - [address] [id number] Boat Patcher Plastic: Rosa Maria Lucero MD, Phone: [phone] Performed at: 02 - [employer] [address] [place] [id number] Boat Patcher Plastic: Jessy Bhat [facility], Phone: [phone] Brian English APRN URINE ORDERABLES Final Result Performing Organization Address City/State/[facility] Co de Phone Number [facility] [address] [place] [address], documented in this encounter Visit Diagnoses Diagnosis Migraine without aura and without status migrainosus, not intractable- Primary Trigeminal neuralgia Urge incontinence of urine Urge incontinence Spasm Abnormal involuntary movements Rectal spasm Urinary incontinence without sensory awareness Incontinence without sensory awareness documented in this encounter Care Teams Infrastructure Manager Relationship Specialty Start Date End Date Lamont Morris MD [address] [facility] [address] [place] [address] PCP - General Adolescent Medicine 01/15/25 documented as of this encounter
--- OUTSIDE RECORDS SUMMARY | 2025-07-16 10:20 | XMS_ITS | Encounter Summary ---
Author Organization [facility] Address [address] [place] [address] Care Team Providers Care Toe Trimmer Name Role Phone Lamont Morris MD Primary Care Provider [phone] Encounter Details Date Type Department Care Team (Late st Contact Info) Description 07/16/2025 10:20 AM EDT Lab [facility] [address] [facility] [facility] [address] [place] [address] Spasm Social History Tobacco Use Types Packs/Day Years Used Date Smoking Tobacco: Former Cigarettes 0.3 1.3 Q uit: 09/06/1996 Passive Smoke Exposure: Never Smokeless Tobacco: Never Alcohol Use Standard Drinks/Week Comments Yes 1 [...] on file documented as of this encounter Plan of Treatment Upcoming Encounters Date Type Department Care Team (Late st Contact Info) Description 10/15/2025 10:00 AM EST Office Visit [facility] [address] [place] [phone] Zaida Perea APRN [address] [facility] [address] [place] [address] documented as of this encounter Goals Goal [...] abortive. .migrainego documented as of this encounter Procedures Procedure Name Priority Date/Time Associated Diagnosis Comments HEAVY METALS PROFILE II, URINE Routine 07/16/2025 10:19 AM EDT Spasm documented in this encounter Results * Heavy Metals Profile [...] AM EDT 07/16/2025 10:19 AM EDT Narrative [facility] - 07/24/2025 11:11 AM EDT Test(s) [id number] (Total),U; [id number]-Wsln, Urine; 804755- Mercury, Urine; [id number]-Mwopjai, Urine was developed and its performance characteristics determined by [facility]. It has not been cleared or approved by the Food and Drug Administration. Performed at: 01 - [address] [id number] Solid Waste Facility Operator: Rosa Maria Lucero MD, Phone: [phone] Performed at: 02 - [facility] [address] [place] [id number] Solid Waste Facility Operator: Jessy Bhat [facility], Phone: [phone] us Zaida Perea APRN URINE ORDERABLES Final Result [facility] [address] [place] [address], documented in this encounter Visit Diagnoses Diagnosis Spasm Abnormal involuntary movements documented in this encounter Care Teams Toe Trimmer Relationship Specialty Start Date End Date Lamont Morris MD [address] [place] [id number] PCP - General Adolescent Medicine 01/15/25 documented as of this encounter
--- NOTE | 2025-07-30 06:46 | MR_ITS ---
FINAL REPORT CLINICAL HISTORY: URGE INCONTINENCE OF URINE. BLADDERS SPAMS. FINDINGS: MRI THORACIC SPINE, WITHOUT AND WITH CONTRAST TECHNIQUE: Multiplanar MR without and with contrast administration. FINDINGS: No acute fracture is present. Alignment is normal. The marrow signal pattern is normal. Thoracic spinal cord shows normal signal and contour. No levels of significant disc disease are present. There is no canal stenosis or cord compression. There is no abnormal enhancement. IMPRESSION: Unremarkable MR evaluation thoracic spine. Given symptomology, MR of the lumbar spine should be considered for evaluation for possible cauda equina. Reviewed, Interpreted and Dictated by Olegario Montoya MD Transcribed by Destiny Mcleod Authenticated and [facility]
--- OUTSIDE RECORDS SUMMARY | 2025-07-30 06:47 | XMS_ITS ---
Author Organization [facility] Address [address] [place] [id number] Care Team Providers Care Block Bolter Mule Operator Name Role Phone Lamont Morris MD Primary Care Provider [phone] Chronic Migraine Status:Enrolled (Active) Start date:12/10/2024 Enrollment date:12/10/2024 Enrollment reason:New start at Current support & services provided:Clinical Assessment, Refill Coordination , Benefits Investigation, Prior Authorization, [facility] Dispensing Linked medications:Galcanezumab-gnlm (Active), Rimegepant Sulfate (Active) Linked problems:Migraine (Active) Case Team Name Relationship Phone Zaida Perea APRN Nurse Practitioner Continued Care and Services Coordination
--- OUTSIDE RECORDS SUMMARY | 2025-07-30 06:47 | XMS_ITS | Encounter Summary ---
[facility] Address [address] [place] [address] Care Team Providers Care Tomato Grader Name Role Phone Lamont Morris MD Primary Care Provider [phone] Encounter Details Date Type Department Care Team (Late st Contact Info) Description 07/21/2025 Telephone [facility] [address] [place] [address] Giovanna Parra, DNP, REHAB/PRE VOCATIONAL COUNSELOR [address] [place] [address] Social History Tobacco Use Types Packs/Day Years [...] on file documented as of this encounter Miscellaneous Notes * Telephone Encounter - Zaida Perea APRN - 07/21/2025 3:57 PM EDT Lets just proceed with the thoracic MRI at this point. It would give us the answers that we need. * Telephone Encounter - Luna Morales MA - 07/21/2025 9:36 AM EDT Per Vanna Lumbar spine without contrast denied, Lumbar spine with contrast denied, and Thoracic spine w/wo contrast denied. Denial reason: Your doctor ordered several tests to be done at the same time. These tests are needed when certain criteria are met. There should be a medical reason to have all these tests to be doneat the same time. We reviewed the notes we have. The notes do not show a specific reason why you need all these tests at the same time. Based on the information we have, we cannot approve this request as medically necessary. We suggest that you continue to see your doctor, to see what kind of testsmight help you. We used [employer] Clinical Guideline titled Imaging of the Spine to make this decision. You may view this guideline at www.carelon.com/uve-betpqdfcmg-atznyziwx. Peer to Peer Number: 276-039.4238 Ref Number: [id number] documented in this encounter Plan of Treatment Upcoming Encounters Date Type Department Care Team (Late st Contact Info) Description 10/15/2025 10:00 AM EST Office Visit [facility] [address] [place] [address] Zaida Perea APRN [address] [place] [address] documented as of this encounter Goals Goal Patient Goal Type Associated Problems Recent Progress Patient-Stated? Author Specialty Pharmacy General Goal General On track( 025 11:00 AM EDT) Khushboo Sanderson, PharmD Note: On Average, Reduce: Frequency of [...] abortive. .migrainego documented as of this encounter Visit Diagnoses Not on filedocumented in this encounter Care Teams Tomato Grader Relationship Specialty Start Date End Date Lamont Morris MD [address] [facility] [address] [place] [address] PCP - General Adolescent Medicine 01/15/25 documented as of this encounter
--- OUTSIDE RECORDS SUMMARY | 2025-07-30 06:47 | XMS_ITS | Encounter Summary ---
Author Organization [facility] Address [address] [place] [id number] Care Team Providers Care General Manager In Training Name Role Phone Lamont Morris MD Primary Care Provider [phone] Reason for Visit * Reason Comments Med Refill Encounter Details Date Type Department Care Team (Late st Contact Info) Description 06/26/2025 Refill [facility] [address] [facility] [address] [place] [address] Zaida Perea, ALKA [address] [facility] [address] [place] [address] Social History Tobacco Use Types Packs/Day Years Used Date Smoking Tobacco: Former Cigarettes 0.3 1 Q uit: 09/06/1996 Passive Smoke Exposure: Never [...] encounter Miscellaneous Notes * Telephone Encounter - Yennifer Duarte MA - 06/26/2025 5:20 PM EDT Rx Refill Note Requested Prescriptions Pending Prescriptions Disp Refills OXcarbazepine (TRILEPTAL) 150 MG tablet [Pharmacy Med Name: OXCARBAZEPINE 150MG TABLETS] 60 tablet Sig: TAKE 1 TABLET BY MOUTH TWICE DAILY Last filled: Last office visit with prescribing clinician: 01/15/2025 Next office visit with prescribing clinician: 07/16/2025 Yennifer Duarte MA 06/26/25, 17:20 EDT documented in this encounter Plan of Treatment Upcoming Encounters Date Type Department Care Team (Late st Contact Info) Description 10/15/2025 10:00 AM EST Office Visit [facility] [address] [facility] [address] [place] [address] Zaida Perea APRN [address] [facility] [address] [place] [address] documented as of this encounter Goals Goal [...] on filedocumented in this encounter Care Teams General Manager In Training Relationship Specialty Start Date End Date Lamont Morris MD [address] [facility] [address] [place] [address] PCP - General Adolescent Medicine 01/15/25 documented as of this encounter
--- OUTSIDE RECORDS SUMMARY | 2025-07-30 06:47 | XMS_ITS | Clinical Summary ---
Author Organization [facility] Address [address] [place] [id number] Care Team Providers Care Shipping Clerk Name Role Phone Lamont Morris MD Primary Care Provider Allergies Active Allergy Reactions Criticality Noted Date Comments Bupropion Anxiety Low 07/26/2023 Penicillins Rash Low 09/06/2016 Atogepant GI Intolerance Medium 05/29/2025 Medications escitalopram (LEXAPRO) 10 MG tablet Take 1 tablet by mouth Every Night. Taking half tab Active clonazePAM (KlonoPIN) 0.5 MG tablet Take 1 tablet by mouth 2 (Two) Times a Day As Needed. 024 Active Cholecalciferol (D3) 50 MCG (1999) tablet Take by mouth Daily. Active galcanezumab-gnlm (EMGALITY) 120 MG/ML auto-injector pen Inject 1 mL under the skin into the appropriate area as directed Every 28 (Twenty-Eight) Days. 1 mL 07/21/20 12:41 PM EDT 025 Active rimegepant sulfate ODT (Nurtec) 75 MG disintegrating tablet Take 1 tablet by mouth Daily As Needed (migraines). Take 1 tablet at the onset of headache, Max of 75 mg/24 hours, Max of 18 tabs/30 days. 16 tablet 07/21/20 12:41 PM EDT 025 Active methocarbamol (ROBAXIN) 500 MG tablet TAKE 1 TO 2 TABLETS BY MOUTH EVERY 8 HOURS NEEDED FOR MUSCLE SPASM /TENSION 025 Active linaclotide (Linzess) 72 MCG capsule capsule 025 Active levothyroxine (SYNTHROID, LEVOTHROID) 112 MCG tablet Take 1 tablet by mouth Every Morning. 025 Active Alpha-Lipoic Acid 600 MG capsule Take by mouth. Active levocetirizine (XYZAL) 5 MG tablet Take 1 tablet by mouth Every Evening. Pt is taking 10 mg Active OXcarbazepine (TRILEPTAL) 300 MG tablet Take 1 tablet by mouth 2 (Two) Times a Day. 60 tablet 6 025 Active levothyroxine (SYNTHROID, LEVOTHROID) 125 MCG tablet Take 1 tablet by mouth Daily. 024 2024 Discontinued OXcarbazepine (TRILEPTAL) 300 MG tablet Take 1 tablet by mouth 2 (Two) Times a Day. 60 tablet 6 025 2024 Discontinued(R eorder) Active Problems Problem Noted Date Diagnosed Date Trigeminal neuralgia 12/31/2023 Migraine 12/31/2023 Hypothyroidism (acquired) 12/29/2023 Anxiety 12/29/2023 HLD (hyperlipidemia) 12/29/2023 Palpitations 09/06/2016 Resolved Problems Problem Noted Date Diagnosed Date Resolved Date Right sided numbness 12/29/2023 024 Encounters Date Type Department Care Team Description 07/21/2025 Telephone [facility] [address] [place] [address] Giovanna Parra DNP, FRONT DESK ASSOCIATE 07/16/2025 10:20 AM EDT Lab [facility] [address] [place] [phone] Spasm 07/16/2025 9:00 AM EDT Office Visit [facility] [address] [facility] [address] [place] [address] Zaida Perea, ALKA Migraine without aura and without status migrainosus, not intractable (Primary Dx); Trigeminal neuralgia; Urge incontinence of urine; Spasm; Rectal spasm; Urinary incontinence without sensory awareness 07/16/2025 Telephone [facility] [address] [facility] [address] [place] [address] Zaida Perea, FRONT DESK ASSOCIATE 07/16/2025 Travel 06/26/2025 Refill [facility] [address] [facility] [address] [place] [address] Zaida Perea, FRONT DESK ASSOCIATE 05/06/2025 Refill [facility] [address] [facility] [address] [place] [address] Zaida Perea, FRONT DESK ASSOCIATE from Last 3 Months Family History Medical History Relation Name Comments Melanoma Father Hyperlipidemia Mother Pauly Hypertension Mother Pauly Migraines Mother Pauly No Known Problems Sister Relation Name Status Comments Father Alive Mother Pauly Alive Sister Alive Social History Tobacco Use Types Packs/Day Years [...] on file Sexual Orientation Not on file Last Filed Vital Signs Vital Sign Reading Time Taken Comments Blood Pressure 116/88 07/16/2025 8:51 AM EDT Pulse 84 07/16/2025 8:51 AM EDT Temperature 36.6 C (97.9 F) 12/31/2023 11:20 AM EST Respiratory Rate 16 12/31/2023 11:20 AM EST Oxygen Saturation 99% 07/16/2025 8:51 AM EDT Inhaled Oxygen Concentration - - Weight 75.4 kg (166 lb 3.2 oz) 07/16/2025 8:51 A M EDT Height 172.7 cm (5' 7.99 ) 07/16/2025 8:51 AM ED T Body Mass Index 25.28 07/16/2025 8:51 AM EDT Plan of Treatment Upcoming Encounters Date Type Department Care Team (Late st Contact Info) Description 10/15/2025 10:00 AM EST Office Visit [facility] [address] [facility] [address] [place] [address] Zaida Preea, FRONT DESK ASSOCIATE 610 [facility] [address] [place] [address] Health Maintenance Due Date Last Done Comments Annual Gynecologic Pelvic and Breast Exam 1981 TDAP/TD VACCINES (1 - Tdap) 2000 PAP SMEAR 2002 MAMMOGRAM 2021 ANNUAL PHYSICAL 03/06/2024 HEPATITIS C SCREENING 03/06/2024 LIPID PANEL 12/30/2024 12/30/2023 COVID-19 Vaccine ( season) 2025 10/04/2021, 01/01/2021, 12/02/2020 INFLUENZA VACCINE 08/13/2025 09/24/2024, , 08/30/2022, Additional history exists Pneumococcal Vaccine 0-49 Aged Out No longer eligible based on patient's age to complete this topic Goals Goal Patient Goal Type Associated Problems [...] 1-2 times weekly. Nurtec effective abortive. .migrainego Procedures Procedure Name Priority Date/Time Associated Diagnosis Comments HEAVY METALS PROFILE II, URINE Routine 07/16/2025 10:19 AM EDT Spasm LIPID PANEL Urgent 12/30/2023 7:41 AM EST from Last 3 Months or Most Recently Relevant to Health Maintenance Results * Heavy Metals Profile II, Urine [...] AM EDT 07/16/2025 10:19 AM EDT N[facility]ative [facility] - 07/24/2025 11:11 AM EDT Test(s) 633014-[id number] (Total),U; [id number]-Hqav, Urine; [id number]- Mercury, Urine; [id number]-Bmlfgmn, Urine was developed and its performance characteristics determined by [facility]. It has not been cleared or approved by the Food and Drug Administration. Performed at: 01 - [address] [id number] Phytopathology Teacher: Rosa Maria Lucero MD, Phone: [phone] Performed at: 02 - [employer] [address] [place] [id number] Phytopathology Teacher: Jessy Kwon, Phone: [phone] Zaida Perea APRN URINE ORDERABLES Final Result Performing Organization Address City/State/[facility] Co de Phone Number [facility] [address] [place] [address], * (ABNORMAL) Lipid Panel (12/30/2023 7:41 AM EST) Total Cholesterol 128 0 - 200 mg/dL 12/30/2023 8:43 AM EST [facility] Triglycerides 63 0 - 150 mg/dL 12/30/2023 8:43 AM EST [facility] HDL Cholesterol 64(H) 40 - 60 mg/dL 12/30/2023 8:43 AM EST [facility] LDL Cholesterol 51 0 - 100 mg/dL 12/30/2023 8:43 AM EST [facility] VLDL Cholesterol 13 5 - 40 mg/dL 12/30/2023 8:43 AM EST [facility] LDL/HDL Ratio 0.80 12/30/2023 8:43 AM EST [facility] Blood Venipuncture / Unknown 12/30/2023 7:41 AM EST 12/30/2023 7:56 AM EST [facility] - 12/30/2023 8:43 AM EST Cholesterol Reference Ranges (U.S. Department of Health and Human Services ATP III Classifications) Desirable <200 mg/dL Borderline High 200-239 mg/dL High Risk >240 mg/dL Triglyceride Reference Ranges (U.S. Department of Health and Human Services ATP III Classifications) Normal <150 mg/dL Borderline High 150-199 mg/dL High 200-499 mg/dL Very High >500 mg/dL HDL Reference Ranges (U.S. Department of Health and Human Services ATP III Classifications) Low <40 mg/dl (major risk factor for CHD) High >60 mg/dl ('negative' risk factor for CHD) LDL Reference Ranges (U.S. Department of Health and Human Services ATP III Classifications) Optimal <100 mg/dL Near Optimal 100-129 mg/dL Borderline High 130-159 mg/dL High 160-189 mg/dL Very High >189 mg/dL Franchesca Lopez DO LAB BLOOD ORDERABLES Final Res ult [facility]
[address] [place] [address], from Last 3 Months or Most Recently Relevant to Health Maintenance Insurance EMPLOYEE Member Subscriber Plan / Payer (Ef fective 2021-Present) Name:Cande Nath Relation to Subscriber:Spouse Name:NAVEEN NATH Date of :1976 (Home) Address: [address] [place] [address] Payer ID:[id number] (NAIC) Type:Not on file Address: [facility] [id number] [place] [phone] Advance Directives * CPR (Attempt to Resuscitate) (Latest Code Status on File) Date Activated Date Inactivated Comments 12/29/2023 10:45 PM 12/31/2023 6:52 PM Question Answer Comments Code Status (Patient has no pulse and is not breathing): CPR (Attempt to Resuscitate) Medical Interventions (Patie nt has pulse or is breathing): Full Support Level Of Support Discussed With: Patient Care Teams Shipping Clerk Relationship Specialty Start Date End Date Lamont Morris MD [address] [facility] [address] [place] [address] PCP - General Adolescent Medicine 01/15/25
--- OUTSIDE RECORDS SUMMARY | 2025-07-30 06:47 | XMS_ITS | Encounter Summary ---
[facility] Address [address] [place] [id number] Care Team Providers Care Fudge Candy Maker Name Role Phone Lamont Morris MD Primary Care Provider [phone] Encounter Details Date Type Department Care Team (Late st Contact Info) Description 07/16/2025 Telephone [facility] [address] [facility] [address] [place] [address] Zaida Perea, DRAWING PRESS OPERATOR 610 [facility] [address] [place] [address] Social History Tobacco Use Types [...] Telephone Encounter - Zaida Perea APRN - 07/16/2025 5:49 PM EDT I called Cande to further discuss diagnostic testing. After discussion with Dr. Kinsey it was recommended that she undergo MRI of the thoracic and lumbar spine due to the urinary and rectal spasms and urinary incontinence. Cande is agreeable to having the diagnostics performed and we will try to schedule them in [place] if possible.. documented in this encounter Plan of Treatment Upcoming Encounters Date Type Department Care Team (Late st Contact Info) Description 10/15/2025 10:00 AM EST Office Visit [facility] [address] [phone] Zaida Perea APRN [address] [address] documented as of this encounter Goals Goal [...] on filedocumented in this encounter Care Teams Fudge Candy Maker Relationship Specialty Start Date End Date Lamont Morris MD [address] [facility] [address] [place] [address] PCP - General Adolescent Medicine 01/15/25 documented as of this encounter
[2025-07-30] MEDS: SODIUM CHLORIDE 0.9% 10ML SYR (RAD ONLY) 10 ML IV (07:40)
[2025-07-30] MEDS: GADOTERIDOL INJ 20ML SYRINGE 15 ML IV (07:40)
== END 2025-07-30 23:59 | disposition home or self-care (01) ==
PROVIDERS: PCP Internal Medicine Adolescent Medicine; Visit Provider Nurse Practitioner Acute Care
DX: N39.41 Urge incontinence (principal); R25.2 Cramp and spasm; K59.4 Anal spasm; N39.42 Incontinence without sensory awareness; N32.89 Other specified disorders of bladder
CPT/HCPCS: 72157; A9576